=== PATIENT | female | born 1990 | race African-American/Black ===

== ENCOUNTER 2016-09-03 08:21 | Emergency (ER) | payer MEDICAID ==
--- NOTE | 2016-09-03 09:22 | ER Document Report ---
ED General - General Chief Complaint: Pain All Over Stated Complaint: COUGH Mode of Arrival: Ambulatory Information source: Patient Notes: 26-year-old female presents with complaints of body aches fevers intermittently productive cough of one-week duration. Patient was seen at an urgent care and diagnosed as upper respiratory infection started on Augmentin with prednisone. Patient denies any improvement of symptoms. Patient has not gotten the flu vaccine this year TRAVEL OUTSIDE OF THE [place] IN LAST 30 DAYS: No - HPI Onset: Last week Onset/Duration: Persistent Quality of pain: Achy Severity: Mild Pain Level: 1 Associated symptoms: Body/muscle aches, Nonproductive cough, Productive cough, Fever Exacerbated by: Denies Relieved by: Denies Similar symptoms previously: Yes Recently seen / treated by doctor: Yes - Related Data Allergies/Adverse Reactions: No Known Allergies Allergy (Verified 09/03/16 08:30) Past Medical History - Social History Smoking Status: Never Smoker Cigarette use (# per day): No Chew tobacco use (# tins/day): No Smoking Education Provided: No Frequency of alcohol use: None Drug Abuse: None Family History: CAD, Hypertension Patient has suicidal ideation: No Patient has homicidal ideation: No - Past Medical History Cardiac Medical History: Denies: Hx Coronary Artery Disease, Hx Heart Attack, Hx Hypertension Pulmonary Medical History: Denies: Hx Asthma, Hx Bronchitis, Hx COPD, Hx Pneumonia Neurological Medical History: Reports: Hx Migraine. Denies: Hx Cerebrovascular Accident, Hx Seizures Renal/ Medical History: Denies: Hx Peritoneal Dialysis Musculoskeltal Medical History: Denies Hx Arthritis Infectious Medical History: Denies: Hx MRSA Past Surgical History: Reports: Hx Cholecystectomy. Denies: Hx Hysterectomy, Hx Pacemaker - Immunizations Hx Diphtheria, Pertussis, Tetanus Vaccination: Yes Review of Systems - Review of Systems Notes: REVIEW OF SYSTEMS: CONSTITUTIONAL : Admits to fever EENT: Denies eye, ear, throat, or mouth pain or symptoms. Denies nasal or sinus congestion or discharge. Denies throat, tongue, or mouth swelling or difficulty swallowing. CARDIOVASCULAR: Denies chest pain. Denies palpitations or racing or irregular heart beat. Denies ankle edema. RESPIRATORY: Admits cough GASTROINTESTINAL: Denies abdominal pain or distention. Denies nausea, vomiting , or diarrhea. Denies blood in vomitus, stools, or per rectum. Denies black, tarry stools. Denies constipation. GENITOURINARY: Denies difficulty urinating, painful urination, burning, frequency, blood in urine, or discharge. FEMALE GENITOURINARY: Denies vaginal bleeding, heavy or abnormal periods, irregular periods. Denies vaginal discharge or odor. MUSCULOSKELETAL: Admits to body aches SKIN: Denies rash, lesions or sores. HEMATOLOGIC : Denies easy bruising or bleeding. LYMPHATIC: Denies swollen, enlarged glands. NEUROLOGICAL: Denies confusion or altered mental status. Denies passing out or loss of consciousness. Denies dizziness or lightheadedness. Denies headache. Denies weakness or paralysis or loss of use of either side. Denies problems with gait or speech. Denies sensory loss, numbness, or tingling. Denies seizures. PSYCHIATRIC: Denies anxiety or stress. Denies depression, suicidal ideation, or homicidal ideation. ALL OTHER SYSTEMS REVIEWED AND NEGATIVE. Dictation was performed using [employer] voice recognition software PHYSICAL EXAMINATION: GENERAL: Well-appearing, well-nourished and in no acute distress. HEAD: Atraumatic, normocephalic. EYES: Pupils equal round and reactive to light, extraocular movements intact, conjunctiva are normal. ENT: Nares patent, oropharynx clear without exudates. Moist mucous membranes. NECK: Normal range of motion, supple without lymphadenopathy LUNGS: Breath sounds clear to auscultation bilaterally and equal. No wheezes rales or rhonchi. HEART: Regular rate and rhythm without murmurs ABDOMEN: Soft, nontender, nondistended abdomen. No guarding, no rebound. No masses appreciated. Female : deferred Musculoskeletal: Normal range of motion, no pitting or edema. No cyanosis. NEUROLOGICAL: Cranial nerves grossly intact. Normal speech, normal gait. Normal sensory, motor exams PSYCH: Normal mood, normal affect. SKIN: Warm, Dry, normal turgor, no rashes or lesions noted. Physical Exam - Vital signs Vitals: Temp Pulse Resp BP Pulse Ox 98.9 F 92 12 107/72 100 09/03/16 08:28 09/03/16 08:28 09/03/16 08:28 09/03/16 08:28 09/03/16 08:28 Course - Re-evaluation Re-evalutation: 09/03/16 09:28 Physical examination notes no significant abnormality, patient is positive for the flu. Otherwise she looks extremely well is in no distress. Patient will be treated symptomatically given the time of onset. After performing a Medical Screening Examination, I estimate there is LOW risk for ACUTE CORONARY SYNDROME, RESPIRATORY FAILURE, SEPSIS OR MENINGITIS, thus I consider the discharge disposition reasonable. The patient and I have discussed the diagnosis and risks, and we agree with discharging home with close follow- up. We also discussed returning to the Emergency Department immediately if new or worsening symptoms occur. We have discussed the symptoms which are most concerning (e.g., changing or worsening pain, trouble swallowing or breathing, neck stiffness, fever) that necessitate immediate return. - Vital Signs Vital signs: Temp Pulse Resp BP Pulse Ox 98.9 F 92 12 107/72 100 09/03/16 08:28 09/03/16 08:28 09/03/16 08:28 09/03/16 08:28 09/03/16 08:28 Discharge - Discharge Clinical Impression: Influenza A, Body aches Condition: Stable Disposition: HOME, SELF-CARE Instructions: Influenza ([facility]) [id number] Additional Instructions: Follow up with your physician tomorrow for further care or return to the ED IMMEDIATELY if symptoms worsen or new concerns occur Forms: Return to Work
[2016-09-03 09:38] VITALS: BP 110/68
== END 2016-09-03 09:38 | disposition home or self-care (01) ==
LOC: ER 08:21
DX: J09.X2 Influenza due to identified novel influenza A virus with other respiratory manifestations (principal); M79.1 Myalgia; Z90.49 Acquired absence of other specified parts of digestive tract
CPT/HCPCS: 87804; 99283

== ENCOUNTER 2016-12-31 08:13 | Emergency (ER) | payer MEDICAID ==
--- NOTE | 2016-12-31 09:09 | ER Document Report ---
ED Dizziness/Weakness - General Mode of Arrival: Ambulatory Information source: Patient TRAVEL OUTSIDE OF THE [place] IN LAST 30 DAYS: No - HPI Patient complains to provider of: Dizziness Onset: Yesterday Onset/Duration: Intermittent Associated symptoms: Chest pain, Dizzy, Lightheaded, Nausea, Short of breath. denies: Diarrhea, Vomiting Exacerbated by: denies: Change in position, Movement of head Baseline gait: Walks w/o assistance <VELIA GARCIA - Last Filed: 12/31/16 11:52> <TRIP DEMARCO - Last Filed: 01/15/17 09:23> - General Chief Complaint: Dizziness Stated Complaint: DIZZINESS,NAUSEA Time Seen by Provider: 12/31/16 08:25 Notes: Patient is a 26-year-old female presenting to the emergency department concerns of dizziness onset yesterday. Patient also admits to left-sided chest pain, lightheadedness, headache, shortness of breath, nausea, and "just feeling weird. " Patient states that she has been having these problems intermittently over the past several years. Patient states that this has not been constant, it came on yesterday when she had a headache, so she decided to take some Excedrin go to sleep. On waking up, patient reports the headache returning and taking another Excedrin. Patient then went to work, shortly after arriving at work her symptoms came back. She states that it is worse when she takes a deep breath but denies any worsening symptoms when she stands or moves her head quickly. Patient denies any tingling in her extremities, swelling, pain, earache, throat pain, cough, vomiting, diarrhea, or vaginal bleeding. (VELIA GARCIA) - Related Data Allergies/Adverse Reactions: No Known Allergies Allergy (Verified 12/31/16 08:14) Past Medical History - General Information source: Patient - Social History Smoking Status: Never Smoker Family History: Reviewed & Not Pertinent, CAD, Hypertension Patient has suicidal ideation: No Patient has homicidal ideation: No Neurological Medical History: Reports: Hx Migraine Past Surgical History: Reports: Hx Cholecystectomy - Immunizations Hx Diphtheria, Pertussis, Tetanus Vaccination: Yes <VELIA GARCIA - Last Filed: 12/31/16 11:52> Review of Systems - Review of Systems Constitutional: No symptoms reported EENT: No symptoms reported. denies: Ear pain, Throat pain Cardiovascular: See HPI, Chest pain, Dizziness, Lightheaded Respiratory: See HPI, Short of breath. denies: Cough Gastrointestinal: See HPI, Nausea. denies: Diarrhea, Vomiting Genitourinary: No symptoms reported Female Genitourinary: No symptoms reported. denies: Vaginal bleeding Musculoskeletal: No symptoms reported. denies: Leg swelling Skin: No symptoms reported Hematologic/Lymphatic: No symptoms reported Neurological/Psychological: See HPI, Headaches. denies: Tingling -: Yes All other systems reviewed and negative <VELIA GARCIA - Last Filed: 12/31/16 11:52> Physical Exam - Vital signs Interpretation: Normal - General General appearance: Appears well, Alert - HEENT Head: Normocephalic, Atraumatic, Other - No vertigo symptoms Eyes: Normal Pupils: PERRL - Respiratory Respiratory status: No respiratory distress Chest status: Nontender - No reproducible chest wall tenderness Breath sounds: Normal Chest palpation: Normal - Cardiovascular Rhythm: Tachycardia Heart sounds: Normal auscultation Murmur: No - Abdominal Inspection: Normal Tenderness: Nontender - Back Back: Normal, Nontender - Extremities General upper extremity: Normal inspection, Nontender. No: Edema General lower extremity: Normal inspection, Nontender. 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 Stern Time consulted: 11:16 Consulted provider: will come to ER <VELIA GARCIA - Last Filed: 12/31/16 11:52> - Laboratory Result Diagrams: 12/31/16 09:10 12/31/16 09:10 <TRIP DEMARCO - Last Filed: 01/15/17 09:23> - Re-evaluation Re-evalutation: 12/31/16 11:16 Patient presents the emergency room chief complaint dizziness lightheadedness chest pain and shortness of breath. She states she got up this morning she felt a little dizzy she went to work she felt short of breath she states she is to have episodes of shortness of breath on and off for several years but there is no been diagnosis. Even since she has been a teenager. She denies any PE or cardiac abnormality or surgical. She does not have asthma but that they tried her inhalers one time. She feels short of breath. Started having left- sided chest pain dizziness that was not reproducible or vertiginous in nature near syncope but not syncope and left-sided chest pain. Initial heart rate on the monitor was regular and sinus. Patient been having palpitations and EKG was obtained showing a sinus tachycardia 126 bpm. She is not dehydrated she is not anemic and she has a negative CT PE study. At this point rest of her labs are negative I called Dr. Stern motivational speaker for cardiology and is going to come down to the emergency department and evaluate the patient. 12/31/16 11:33 Dr. stern is here to see the patient. He has asked me to give her 12.5 mg p.o. of metoprolol discharged with a prescription and he will see her in the office. He discussed with the patient doing an echocardiogram patient states she does not want to wait to have it done today would rather have it done as an outpatient. [facility] is ordering the outpatient echocardiogram. Patient is stable with this. Do not suspect any cardiac ischemia no dissection or pulmonary embolism. Will discharge given primary care physician and Dr. Stern cardiology for follow-up and discussed reasons for ED return to (TRIP DEMARCO) - Vital Signs Vital signs: Temp Pulse Resp BP Pulse Ox 98.2 F 83 16 102/62 100 12/31/16 08:17 12/31/16 09:20 12/31/16 10:01 12/31/16 10:01 12/31/16 10:01 - Laboratory Laboratory results interpreted by me: 12/31/16 12/31/16 09:10 09:10 Hgb 11.8 L MCHC 31.8 L RDW 14.3 H D-Dimer 0.66 H Discharge <VELIA GARCIA - Last Filed: 12/31/16 11:52> <TRIP DEMARCO - Last Filed: 01/15/17 09:23> - Discharge Clinical Impression: chest pain, sinus tachycardia Condition: Stable Disposition: HOME, SELF-CARE Additional Instructions: Chest Pain of Unclear Cause The exact cause of your chest pain isn't clear. Fortunately, there is no evidence of a dangerous medical condition. Further testing may be required to find the source of the pain. Most often, we find that this pain is coming from the chest wall -- the muscles or rib joints in the chest. But chest pain can come from the lung and lung lining, the esophagus, the heart valves or heart lining, and even the stomach or gallbladder. Rest. Eat lightly until the pain is gone. We may prescribe medicine for pain and inflammation. You should call the physician immediately if the pain radiates to the shoulder, jaw or arms; if you start to run a fever or develop a cough; or if you develop shortness of breath, or other new or alarming symptoms. Sinus Tachycardia The palpitations (racing heart) you have felt are due to "sinus tachycardia." This is a rapid (but NORMAL) rhythm which can be due to fever, pain, anxiety, lack of sleep, over-exertion, or drugs. Cold medications, caffeine, and diet pills are particularly likely to cause tachycardia. The doctor has found no evidence of heart disease. Occasionally, medication is required for uncomfortable palpitations. Usually, however, all that is required is rest, reassurance, and avoiding caffeine, alcohol, nicotine , and unnecessary medicines. Call the doctor if you develop any new or unusual symptoms, or if the rapid heartbeat does not resolve. Prescriptions: Metoprolol Tartrate [Lopressor 25 mg Tablet] 12.5 mg PO DAILY #12 tab Forms: Return to Work Referrals: MAJO LANGLEY DO [Primary Care Provider] - (call Today for follow-up appointment in 2-3 days return for increasing worsening or new sent) GIA STERN MD [ACTIVE STAFF] - Follow up as needed (Dr. stern saw you in the emergency department and has asked that you call his office today to set up a follow-up appointment in the next 3-4 days he discussed with you doing an echocardiogram which he is going to order for you as an outpatient. Return to the emergency department sooner for increasing worsening or new symptoms) Scribe Attestation: 12/31/16 11:38 I personally performed the services described in the documentation reviewed the documentation recorded by my scribe in my presence and it accurately and completely records my words and actions (TRIP DEMARCO) Scribe Documentation - Scribe Written by Ismael:: Ismael Zaman, 12/30/2016 [id number] acting as scribe for :: Cliff <VELIA GARCIA - Last Filed: 12/31/16 11:52>
--- NOTE | 2016-12-31 09:49 | RADIOLOGY REPORT (SQ) ---
EXAM DESCRIPTION: CHEST PA/LAT COMPLETED DATE/TIME: 12/31/2016 9:37 am REASON FOR STUDY: chest pain sob COMPARISON: None. EXAM PARAMETERS: NUMBER OF VIEWS: two views TECHNIQUE: Digital Frontal and Lateral radiographic views of the chest acquired. RADIATION DOSE: NA LIMITATIONS: none FINDINGS: LUNGS AND PLEURA: No opacities, masses or pneumothorax. No pleural effusion. MEDIASTINUM AND HILAR STRUCTURES: No masses or contour abnormalities. HEART AND VASCULAR STRUCTURES: Heart normal size. No evidence for failure. BONES: No acute findings. HARDWARE: EKG leads overlie the chest. OTHER: No other significant finding. IMPRESSION: NO SIGNIFICANT RADIOGRAPHIC FINDING IN THE CHEST. TECHNICAL DOCUMENTATION: JOB ID: [id number] [employer]- All Rights Reserved
[2016-12-31 09:56] LABS: ABSOLUTE EOSINOPHILS # (AUTO) 0.1 10^3/uL (0.0-0.6); ABSOLUTE LYMPHOCYTES (AUTO) 1.4 10^3/uL (0.5-4.7); ABSOLUTE MONOCYTES (AUTO) 0.5 10^3/uL (0.1-1.4); ABSOLUTE NEUT (AUTO) 4.5 10^3/uL (1.7-8.2); BASOPHILS % (AUTO) 0.5 % (0-2); EOSINOPHILS % (AUTO) 0.8 % (0-6); HEMATOCRIT 36.9 % (36.0-47.0); HEMOGLOBIN 11.8 g/dL (12.0-15.5); HGB HCT DIFFERENCE -1.5; LYMPHOCYTES % (AUTO) 21.3 % (13-45); MEAN CORPUSCULAR HEMOGLOBIN 27.6 pg (27.0-33.4); MEAN CORPUSCULAR HGB CONC 31.8 g/dL (32.0-36.0); MEAN CORPUSCULAR VOLUME 87 fl (80-97); MONOCYTES % (AUTO) 7.6 % (3-13); RED BLOOD COUNT 4.26 10^6/uL (3.72-5.28); RED CELL DISTRIBUTION WIDTH 14.3 % (11.5-14.0); SEGMENTED NEUTROPHILS % (AUTO) 69.8 % (42-78); WHITE BLOOD COUNT 6.4 10^3/uL (4.0-10.5)
[2016-12-31 10:10] VITALS: BP 102/62
[2016-12-31 10:15] LABS: ANION GAP 15 (5-19); BLOOD UREA NITROGEN 12 mg/dL (7-20); CALCIUM 10.1 mg/dL (8.4-10.2); CARBON DIOXIDE 24 mmol/L (22-30); CHLORIDE 103 mmol/L (98-107); CREATININE RESULT 0.77 mg/dL (0.52-1.25); GLUCOSE 85 mg/dL (75-110); POTASSIUM 4.3 mmol/L (3.6-5.0)
[2016-12-31 10:29] LABS: URINE BARBITURATES SCREEN NEGATIVE; URINE METHADONE SCREEN NEGATIVE; URINE OPIATES LOW NEGATIVE; URINE PHENCYCLIDINE SCREEN NEGATIVE
[2016-12-31 11:03] LABS: APPEARANCE,URINE CLEAR; BILIRUBIN,URINE NEGATIVE (NEGATIVE); GLUCOSE, URINE NEGATIVE (NEGATIVE); KETONES,URINE NEGATIVE (NEGATIVE); LEUKOCYTE ESTERASE,URINE NEGATIVE (NEGATIVE); NITRITE,URINE NEGATIVE (NEGATIVE); PROTEIN,URINE NEGATIVE (NEGATIVE); URINE SPECIFIC GRAVITY 1.005; UROBILINOGEN,URINE NEGATIVE mg/dL (<2.0)
[2016-12-31 11:04] LABS: RBC,URINE 0-1 /HPF
--- NOTE | 2016-12-31 11:08 | RADIOLOGY REPORT (SQ) ---
EXAM DESCRIPTION: CTA CHEST COMPLETED DATE/TIME: 12/31/2016 10:52 am REASON FOR STUDY: tachycardia sob chest pain COMPARISON: None. TECHNIQUE: CT scan of the chest performed using helical scanning technique with dynamic intravenous contrast injection. Images reviewed with lung, soft tissue and bone windows. Reconstructed coronal and sagittal MPR images reviewed. Additional 3 dimensional post-processing performed to develop Maximal Intensity Projection images (PR P). All images stored on PACS. All CT scanners at this facility use dose modulation, iterative reconstruction, and/or weight based d osing when appropriate to reduce radiation dose to as low as reasonably achievable (ALARA). [facility]: Dose Right [facility]: CareDose [facility]: Dose Right [facility]: Teradose 4D [facility]: Corban Direct CONTRAST TYPE AND DOSE: 62 mL Isovue 370- low osmolar. RENAL FUNCTION: GFR > 60. RADIATION DOSE: 34.16 mGy. LIMITATIONS: None. FINDINGS: LUNGS AND PLEURA: No masses, infiltrates, pneumothorax. No pleural effusions, calcificati ons. AORTA AND GREAT VESSELS: No aneurysm or dissection. HEART: No pericardial effusion. PULMONARY ARTERIES: No emboli visualized in the main pulmonary arteries or the segmental branches. HILAR AND MEDIASTINAL STRUCTURES: No identified masses or abnormal nodes. HARDWARE: None in the chest. UPPER ABDOMEN: No significant findings. Limited exam. THYROID AND OTHER SOFT TISSUES: No masses. No adenopathy. BONES: No acute or significant finding. 3D MIPS: Confirm above findings. OTHER: No other significant finding. IMPRESSION: NORMAL CTA OF THE CHEST. NO PULMONARY EMBOLI. TECHNICAL DOCUMENTATION: JOB ID: [id number] Quality ID # [id number]: Final reports with documentation of one or more dose reduction techniques (e.g., Au tomated exposure control, adjustment of the mA and/or kV according to patient size, use of iterative reconstruction technique) 2010 [employer]- All Rights Reserved
[2016-12-31] MEDS ORDERED: METOPROLOL TARTRATE 25 MG TABLET PO ONE (11:40)
[2016-12-31 13:16] LABS: WBC,URINE NONE SEEN /HPF
--- NOTE | 2016-12-31 13:39 | PDOC CONSULTATION ---
Consultation Consult Date: 12/31/16 Attending physician:: TRIP DEMARCO Consult reason:: Tachycardia History of Present Illness Admission Date/PCP: MAJO LANGLEY DO Patient complains of: Chest pain and shortness of breath History of Present Illness: JOY RICARDO is a 26 year old female presenting to the emergency department concerns of dizziness onset yesterday. Patient also admits to left- sided chest pain, lightheadedness, headache, shortness of breath, nausea, and "just feeling weird." Patient states that she has been having these problems intermittently over the past several years. Patient states that this has not been constant, it came on yesterday when she had a headache, so she decided to take some Excedrin go to sleep. On waking up, patient reports the headache returning and taking another Excedrin. Patient then went to work, shortly after arriving at work her symptoms came back. She states that it is worse when she takes a deep breath but denies any worsening symptoms when she stands or moves her head quickly. Patient denies any tingling in her extremities, swelling, pain, earache, throat pain, cough, vomiting, diarrhea, or vaginal bleeding. Patient denied any prior history of syncopal spell, cardiac problems , congestive heart failure or any other significant medical issues. She does not see any physician on a regular basis. This history was reviewed confirmed and supplemented. Past Medical History Cardiac Medical History: Denies: Coronary Artery Disease, Myocardial Infarction, Hypertension Pulmonary Medical History: Denies: Asthma, Bronchitis, Chronic Obstructive Pulmonary Disease (COPD), Pneumonia Neurological Medical History: Reports: Migraine Denies: Seizures Musculoskeltal Medical History: Denies: Arthritis Hematology: Denies: Anemia Infectious Medical History: Denies: Methicillin-Resistant Staph Aureus Past Surgical History Past Surgical History: Reports: Cholecystectomy Denies: Hysterectomy, Pacemaker Social History Information Source: Patient Smoking Status: Never Smoker - Advance Directive Resuscitation Status: Full Code Family History Family History: CAD, Hypertension Parental Family History Reviewed: Yes Children Family History Reviewed: Yes Sibling(s) Family History Reviewed.: Yes Medication/Allergy Home Medications: Cetirizine HCl [Zyrtec] 10 mg PO DAILY #30 capsule 06/14/16 Prednisone [Deltasone] 20 mg PO BID #6 tablet 06/14/16 Metoprolol Tartrate [Lopressor 25 mg Tablet] 12.5 mg PO DAILY #12 tab 12/31/16 Allergies/Adverse Reactions: No Known Allergies Allergy (Verified 12/31/16 08:14) Review of Systems Review of Systems: Please see history of present illness and past medical history as wall. Constitutional: No fever or chills reported. Head : No recent chronic headaches, recent head injury. Eyes: No recent eye pain, diplopia, redness, discharge, acute visual changes. Ears: No recent chronic ear pain, acute hearing loss, ear discharge. Oral cavity: No recent ulcerations, bleeding, oral cavity discomfort. Neck: No recent acute neck pain reported. Hematologic: No recent easy bruising or bleeding or hematologic malignancy reported. Lymphatic: No recent lymphatic malignancy, chronic lymphadenopathy reported yet Cardiovascular system review: See history of present illness. Respiratory system review: No recent chronic cough, hemoptysis, blood clots in the lungs reported. Mild Shortness of breath on exertion Gastrointestinal system review: Negative for any recent acute or chronic abdominal pain, hematemesis, melena, recent change in bowel habits. Genitourinary system review: No recent acute or chronic hematuria, flank pain, UTI etc. reported. Skin system review: Negative for any recent abnormal bruising, no rash, no pruritus reported. Neurologic: No prior history of strokes, mini strokes, seizure disorder. Intermittent dizziness reported. Psychologic: No history of major psychosis or major depression reported. Musculoskeletal: Minor aches and pains reported. No acute joint swelling reported. Endocrine: No recent polyuria, polydipsia, recent heat or cold intolerance. Physical Exam Vital Signs: Temp Pulse Resp BP Pulse Ox 98.2 F 83 16 102/62 100 12/31/16 08:17 12/31/16 09:20 12/31/16 10:01 12/31/16 10:01 12/31/16 10:01 Intake & Output 12/30/16 12/31/16 01/01/17 06:59 06:59 06:59 Weight 54.3 kg Exam: GENERAL: well-nourished and in no acute distress. Alert and oriented x3 HEAD: Atraumatic, normocephalic. EYES: Pupils equal round and reactive to light, extraocular movements intact, sclera anicteric, conjunctiva are normal. ENT: TMs normal, nares patent, oropharynx clear without exudates. Moist mucous membranes. No oral ulcerations or bleeding gums noted NECK: supple without lymphadenopathy. Trachea is central. No cervical or axillary lymphadenopathy noted. Carotids are 2+, JVD WNL LUNGS: Respiration seems nonlabored, no significant accessory muscle action noted. Breath sounds clear to auscultation bilaterally and equal noted. No wheezes rales or rhonchi noted. No significant dullness noted on percussion. CHEST: Palpation of the chest wall shows no significant chest wall tenderness. No other significant abnormalities noted. HEART: [place] [employer], No PSH, 1/6 JANES aortic area, 1/6 pope systolic murmur mitral area, no rubs, no gallops. ABDOMEN: Soft, no significant tenderness appreciated, normoactive bowel sounds. No guarding, no rebound. No rigidity noted . No masses appreciated. EXTREMITIES: Pedal pulses are 1-2+, no calf tenderness noted. No clubbing or cyanosis.trace to 1+ pedal edema noted NEUROLOGICAL: Focused neurological exam showed no significant neurologic deficit. Normal speech, no focal weakness appreciated. PSYCH: Normal mood, normal affect. Judgment and insight within normal limits. SKIN: No significant ecchymosis, rash, ulcerations or signs of pruritus noted. MUSCULOSKELETAL EXAM: No significant joint swelling noted. Results Laboratory Results: 12/31/16 09:10 12/31/16 09:10 12/31/16 12/31/16 12/31/16 09:10 09:10 09:10 WBC 6.4 RBC 4.26 Hgb 11.8 L Hct 36.9 MCV 87 MCH 27.6 MCHC 31.8 L RDW 14.3 H Plt Count 211 Seg Neutrophils % 69.8 Lymphocytes % 21.3 Monocytes % 7.6 Eosinophils % 0.8 Basophils % 0.5 Absolute Neutrophils 4.5 Absolute Lymphocytes 1.4 Absolute Monocytes 0.5 Absolute Eosinophils 0.1 Absolute Basophils 0.0 Sodium 142.0 Potassium 4.3 Chloride 103 Carbon Dioxide 24 Anion Gap 15 BUN 12 Creatinine 0.77 Est GFR ( Amer) > 60 Est GFR (Non-Af Amer) > 60 Glucose 85 Calcium 10.1 Serum HCG, Qual NEGATIVE Urine Color Urine Appearance Urine pH Ur Specific [place] Urine Protein Urine Glucose (UA) Urine Ketones Urine Blood Urine Nitrite Ur Leukocyte Esterase 12/31/16 09:10 WBC RBC Hgb Hct MCV MCH MCHC RDW Plt Count Seg Neutrophils % Lymphocytes % Monocytes % Eosinophils % Basophils % Absolute Neutrophils Absolute Lymphocytes Absolute Monocytes Absolute Eosinophils Absolute Basophils Sodium Potassium Chloride Carbon Dioxide Anion Gap BUN Creatinine Est GFR ( Amer) Est GFR (Non-Af Amer) Glucose Calcium Serum HCG, Qual Urine Color COLORLESS Urine Appearance CLEAR Urine pH 7.0 Ur Specific [place] 1.005 Urine Protein NEGATIVE Urine Glucose (UA) NEGATIVE Urine Ketones NEGATIVE Urine Blood NEGATIVE Urine Nitrite NEGATIVE Ur Leukocyte Esterase NEGATIVE EKG Comments: Sinus rhythm, no acute ST-T wave changes are noted Impressions: Chest X-Ray 12/31/16 08:43 IMPRESSION: NO SIGNIFICANT RADIOGRAPHIC FINDING IN THE CHEST. Chest/Abdomen CTA 12/31/16 10:30 IMPRESSION: NORMAL CTA OF THE CHEST. NO PULMONARY EMBOLI. Assessment & Plan - Diagnosis (1) Chest pain Qualifiers: Chest pain type: chest pain on breathing Qualified Code(s): R07.1 - Chest pain on breathing Is this a current diagnosis for this admission?: Yes (2) Shortness of breath Is this a current diagnosis for this admission?: Yes (3) Dizziness Is this a current diagnosis for this admission?: Yes (4) Tachycardia Is this a current diagnosis for this admission?: Yes (5) Panic attack Is this a current diagnosis for this admission?: Yes - Notes Notes: Patient symptom complex most likely consistent with anxiety panic disorder. Have discussed this with the patient. CTA was negative for any pulmonary embolism and also did not show any coronary calcification. Have also discussed that she might benefit from a 2D echo and a stress test just to be sure there is no other structural heart disease. Patient was prescribed Toprol-XL 12.5 mg by the ER physician on my recommendation. Patient was also advised to undergo a 2D echo but she did not want to wait but will get this scheduled at my office. Patient twelve-lead EKG shows questionable LVH. Patient to report any further problems. Discussed with the ER physician who is going to discharge the patient with instructions to follow-up with me in the office. Have recommended a event monitor/Holter monitor with the patient. - Time Time Spent: 30 to 50 Minutes Medications reviewed and adjusted accordingly: Yes
[2017-01-01] MEDS ORDERED: METOPROLOL SUCCINATE 25 MG TAB.SR.24H PO SCH (10:00)
--- NOTE | 2017-01-01 11:03 | EKG REPORT ---
SEVERITY:- NORMAL ECG - SINUS RHYTHM : Confirmed by: Nadia Esposito MD 01-Jan-2017 11:02:22
--- NOTE | 2017-01-01 11:03 | EKG REPORT ---
SEVERITY:- OTHERWISE NORMAL ECG - SINUS TACHYCARDIA : Confirmed by: Nadia Esposito MD 01-Jan-2017 11:02:17
== END 2016-12-31 12:06 | disposition home or self-care (01) ==
LOC: ER 08:13
DX: R07.9 Chest pain, unspecified (principal); R00.0 Tachycardia, unspecified; R42 Dizziness and giddiness; R11.0 Nausea; R06.02 Shortness of breath; R51 Headache
CPT/HCPCS: 36415; 71020; 71275; 80048; 80307; 81001; 84703; 85025; 85379; 93005; 93010; 99285

== ENCOUNTER 2017-06-14 20:07 | Emergency (ER) | payer OTHER ==
[2017-06-14] MEDS ORDERED: METOCLOPRAMIDE HCL ORAL SOLN 10 MG/10 ML UDCUP PO ONE (21:25)
[2017-06-14] MEDS ORDERED: MAG HYDROX/AL HYDROX/SIMETH SUSP 30 ML UDCUP PO ONE (21:25)
[2017-06-14] MEDS ORDERED: LIDOCAINE 2% VISCOUS SOLN 20 ML UDCUP PO ONE (21:25)
[2017-06-14] MEDS ORDERED: FAMOTIDINE 20 MG TABLET PO ONE (21:25)
--- NOTE | 2017-06-14 21:26 | ER Document Report ---
ED General - General Chief Complaint: Upper abdominal pain, nausea, racing heart Stated Complaint: SHORTNESS OF BREATH,ABDOMINAL PAIN Time Seen by Provider: 06/14/17 21:04 Notes: Patient is a 26-year-old female with past medical history of anxiety who presents with several weeks of intermittent chest burning. She reports that this is an intermittent, burning, moderate discomfort diffusely in her chest. She states is worsened when she lies flat and often improves when she sits up. She has a history of gastroesophageal reflux but has not been taking any medications to treat this until last 2 days but states that this has not significantly improved her symptoms. She has not seen a primary care doctor regarding today's concerns. She denies any history of DVT or pulmonary embolus. She does not use estrogen any form. She denies any shortness of breath or pleuritic pain. No vomiting. She has no cardiac history. TRAVEL OUTSIDE OF THE [place] IN LAST 30 DAYS: No - Related Data Allergies/Adverse Reactions: No Known Allergies Allergy (Verified 12/31/16 08:14) Past Medical History - General Information source: Patient - Social History Smoking Status: Never Smoker Frequency of alcohol use: None Drug Abuse: None Lives with: Spouse/Significant other Family History: CAD, Hypertension Patient has suicidal ideation: No Patient has homicidal ideation: No - Past Medical History Cardiac Medical History: Denies: Hx Coronary Artery Disease, Hx Heart Attack, Hx Hypertension Pulmonary Medical History: Denies: Hx Asthma, Hx Bronchitis, Hx COPD, Hx Pneumonia Neurological Medical History: Reports: Hx Migraine. Denies: Hx Cerebrovascular Accident, Hx Seizures Renal/ Medical History: Denies: Hx Peritoneal Dialysis Musculoskeltal Medical History: Denies Hx Arthritis Infectious Medical History: Denies: Hx MRSA Past Surgical History: Reports: Hx Cholecystectomy. Denies: Hx Hysterectomy, Hx Pacemaker - Immunizations Hx Diphtheria, Pertussis, Tetanus Vaccination: Yes Review of Systems - Review of Systems Notes: Constitutional: Negative for fever. HENT: Negative for sore throat. Eyes: Negative for visual changes. Cardiovascular: Positive for chest pain. Respiratory: Negative for shortness of breath. Gastrointestinal: Negative for abdominal pain, vomiting or diarrhea. Genitourinary: Negative for dysuria. Musculoskeletal: Negative for back pain. Skin: Negative for rash. Neurological: Negative for headaches, weakness or numbness. 10 point ROS negative except as marked above and in HPI. Physical Exam - Vital signs Vitals: Temp Pulse Resp BP Pulse Ox 98.5 F 102 H 16 123/75 97 06/14/17 20:15 06/14/17 20:15 06/14/17 20:15 06/14/17 20:15 06/14/17 20:15 Interpretation: Normal Notes: PHYSICAL EXAMINATION: GENERAL: Well-appearing, well-nourished and in no acute distress. HEAD: Atraumatic, normocephalic. EYES: Pupils equal round and reactive to light, extraocular movements intact, sclera anicteric, conjunctiva are normal. ENT: nares patent, oropharynx clear without exudates. Moist mucous membranes. NECK: Normal range of motion, supple without lymphadenopathy LUNGS: Breath sounds clear to auscultation bilaterally and equal. No wheezes rales or rhonchi. HEART: Regular rate and rhythm without murmurs ABDOMEN: Soft, nontender, normoactive bowel sounds. No guarding, no rebound. No masses appreciated. EXTREMITIES: Normal range of motion, no pitting or edema. No cyanosis. NEUROLOGICAL: No focal neurological deficits. Moves all extremities spontaneously and on command. PSYCH: Normal mood, normal affect. SKIN: Warm, Dry, normal turgor, no rashes or lesions noted. Course - Re-evaluation Re-evalutation: 06/14/17 21:25 Patient presents with epigastric abdominal pain with associated reflux symptoms most consistent with likely gastritis. Patient has no focal abdominal tenderness on examination. Right upper quadrant ultrasound does not demonstrate any evidence of acute cholecystitis or cholelithiasis. Lipase is normal. No LFT changes. Based on history and exam, I do not suspect ACS, pulmonary embolus, SBO, mesenteric ischemia, acute pancreatitis, biliary pathology, or an abdominal aortic dissection. Patient did initially have some complaints of possible shortness of breath although she reports it more as a burning in her chest particular when she lays flat. Although her initial heart rate in triage was listed as 102, at time of my assessment and at time of EKG her heart rate is normal. PERC criteria negative. I do not believe proceeding further with d-dimer testing would be appropriate as I do not clinically suspect a pulmonary embolus and she is actually worked up for that possibility in the past with this presentation and found to be negative. Patient has had improvement of symptoms here with a GI cocktail. At this time will discharge with return precautions and follow-up recommendations. Verbal discharge instructions given a the bedside and opportunity for questions given. Medication warnings reviewed. Patient is in agreement with this plan and has verbalized understanding of return precautions and the need for primary care follow-up in the next 24-72 hours. - Vital Signs Vital signs: Temp Pulse Resp BP Pulse Ox 98.3 F 87 16 109/62 98 06/14/17 22:50 06/14/17 22:50 06/14/17 22:50 06/14/17 22:58 06/14/17 22:50 - Laboratory Result Diagrams: 06/14/17 21:10 - Diagnostic Test Radiology reviewed: Image reviewed, Reports reviewed Radiology results interpreted by me: 06/14/17 22:38 Chest x-ray: No acute infiltrate or pneumothorax - EKG Interpretation by Me Additional EKG results interpreted by me: 06/14/17 22:38 Normal sinus rhythm. Rate 84. No ST elevations or depressions. QTC is 421. Discharge - Discharge Clinical Impression: Epigastric abdominal pain, Burning chest pain Condition: Good Disposition: HOME, SELF-CARE Additional Instructions: Your symptoms appear to be most consistent with stomach or upper intestinal irritation. Please begin taking famotidine 40 mg in the morning and 40 mg at night. This medicine can be purchased directly [id number]. You may also take medicine such as Pepto-Bismol or Tums to assist with your pain. Please return to emergency department immediately if you have worsening of your pain, shortness of breath, vomiting, become unable to exert yourself due to pain or difficulty breathing, you pass out, or have any pain that radiates into your arms, jaw, or back. Please also return if you have any additional symptoms that are concerning to you.
[2017-06-14 21:51] LABS: ALANINE AMINOTRANSFERASE 27 U/L (9-52); ALBUMIN 4.4 g/dL (3.5-5.0); ALKALINE PHOSPHATASE 47 U/L (38-126); ANION GAP 11 (5-19); ASPARTATE AMINO TRANSFERASE 26 U/L (14-36); BILIRUBIN,DIRECT 0.3 mg/dL (0.0-0.4); BILIRUBIN,TOTAL 0.5 mg/dL (0.2-1.3); BLOOD UREA NITROGEN 13 mg/dL (7-20); CALCIUM 9.6 mg/dL (8.4-10.2); CARBON DIOXIDE 26 mmol/L (22-30); CHLORIDE 106 mmol/L (98-107); CREATININE RESULT 0.77 mg/dL (0.52-1.25); GLUCOSE 95 mg/dL (75-110); LIPASE 147.2 U/L (23-300); POTASSIUM 4.4 mmol/L (3.6-5.0); SODIUM 142.8 mmol/L (137-145); TOTAL PROTEIN 7.9 g/dL (6.3-8.2)
--- NOTE | 2017-06-14 22:29 | RADIOLOGY REPORT (SQ) ---
EXAM DESCRIPTION: CHEST SINGLE VIEW COMPLETED DATE/TIME: 06/14/2017 9:31 pm REASON FOR STUDY: sob COMPARISON: None. EXAM PARAMETERS: NUMBER OF VIEWS: One view. TECHNIQUE: Single frontal radiographic view of the chest acquired. RADIATION DOSE: NA LIMITATIONS: None. FINDINGS: LUNGS AND PLEURA: No opacities, masses or pneumothorax. No pleural effusion. MEDIASTINUM AND HILAR STRUCTURES: No masses. Contour normal. HEART AND VASCULAR STRUCTURES: Heart normal in size. Normal vasculature. BONES: No acute findings. HARDWARE: None in the chest. OTHER: No other significant finding. IMPRESSION: NO ACUTE RADIOGRAPHIC FINDING IN THE CHEST. TECHNICAL DOCUMENTATION: JOB ID: [id number] [employer]- All Rights Reserved
[2017-06-14 22:59] VITALS: BP 109/62
--- NOTE | 2017-06-14 23:21 | EKG REPORT ---
SEVERITY:- NORMAL ECG - SINUS RHYTHM : Confirmed by: Nathalie Stern 14-Jun-2017 23:20:34
== END 2017-06-14 22:59 | disposition home or self-care (01) ==
LOC: ER 20:07
DX: R10.13 Epigastric pain (principal); R07.9 Chest pain, unspecified; R11.0 Nausea; R00.2 Palpitations; R06.02 Shortness of breath; F41.9 Anxiety disorder, unspecified
CPT/HCPCS: 93005; 99284; 36415; 84702; 83690; 80053; 71010; 93010; J3490

== ENCOUNTER 2017-09-15 19:32 | Emergency (ER) | payer OTHER ==
--- NOTE | 2017-09-15 23:32 | ER Document Report ---
ED General - General Mode of Arrival: Ambulatory Information source: Patient TRAVEL OUTSIDE OF THE [place] IN LAST 30 DAYS: No - General Chief Complaint: Headache, sore throat, nausea, neck stiffness Stated Complaint: HEADACHE, SORE THROAT, NAUSEA Time Seen by Provider: 09/15/17 22:25 Notes: Patient is a 27-year-old female that presents to the emergency department today with multiple complaints including a migraine headache, a "scratchy and sore throat", abdominal pain, nausea, and a dry cough. 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 Patient states her migraine began first, starting 3 days ago. Her throat irritation began yesterday and this morning she woke up with the abdominal pain, cough, and nausea. Patient mentions that she has chronic shortness of breath however she has not had any increase in her shortness of breath since her symptoms began. Patient denies any vomiting or fevers. (PEPITO BOURNE) - Related Data Allergies/Adverse Reactions: No Known Allergies Allergy (Verified 12/31/16 08:14) Past Medical History - General Information source: Patient - Social History Smoking Status: Never Smoker Cigarette use (# per day): No Frequency of alcohol use: None Drug Abuse: None Lives with: Family Family History: Reviewed & Not Pertinent, CAD, Hypertension Patient has suicidal ideation: No Patient has homicidal ideation: No Neurological Medical History: Reports: Hx Migraine Past Surgical History: Reports: Hx Cholecystectomy - Immunizations Hx Diphtheria, Pertussis, Tetanus Vaccination: Yes Review of Systems - Review of Systems Constitutional: denies: Fever EENT: See HPI, Throat pain Cardiovascular: No symptoms reported Respiratory: See HPI, Cough, Short of breath - pt states she has chronic shortness of breath but she has not had any increase with her illness Gastrointestinal: See HPI, Abdominal pain, Nausea. denies: Vomiting Genitourinary: No symptoms reported Female Genitourinary: No symptoms reported Musculoskeletal: No symptoms reported Skin: No symptoms reported Hematologic/Lymphatic: No symptoms reported Neurological/Psychological: See HPI, Headaches -: Yes All other systems reviewed and negative Physical Exam - Vital signs Vitals: Temp Pulse Resp BP Pulse Ox 98.1 F 87 16 118/63 100 09/15/17 20:12 09/15/17 20:12 09/15/17 20:12 09/15/17 20:12 09/15/17 20:12 - Notes Notes: Physical Exam: General: Alert, appears well. HEENT: Normocephalic. Atraumatic. PERRL. Extraocular movements intact. Oropharynx clear. No posterior pharynx erythema or exudate. Neck: Supple. Non-tender. Respiratory: No respiratory distress. Clear and equal breath sounds bilaterally. Cardiovascular: Regular rate and rhythm. Abdominal: Normal Inspection. Non-tender. No distension. Normal Bowel Sounds. Back: Non-tender. No deformity or step off. Extremities: Moves all four extremities. Upper extremities: Normal inspection. Normal ROM. Lower extremities: Normal inspection. No edema. Normal ROM. Neurological: Normal cognition. AAOx4. Normal speech. Psychological: Normal affect. Normal Mood. Skin: Warm. Dry. Normal color. (PEPITO BOURNE) Course - Re-evaluation Re-evalutation: 09/16/17 00:47 Patient reports complete resolution of headache. Wishes to be discharged. 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 Patient was given Compazine and Zofran with complete resolution of headache. Patient appears well. No evidence for bacterial infection. Likely viral syndrome. Patient is instructed to follow-up with her doctor. She will be given a work note. Return if any worsening or concerning symptoms. AVSS. Stable for discharge. (GOOD BULL) - Vital Signs Vital signs: Temp Pulse Resp BP Pulse Ox 98.6 F 74 16 132/66 H 99 09/16/17 01:15 09/16/17 01:15 09/16/17 01:15 09/16/17 01:15 09/16/17 01:15 Discharge - Discharge Clinical Impression: Headache Qualifiers: Headache type: unspecified Headache chronicity pattern: acute headache Intractability: not intractable Qualified Code(s): R51 - Headache Upper respiratory infection Qualifiers: URI type: unspecified URI Qualified Code(s): J06.9 - Acute upper respiratory infection, unspecified Condition: Stable Disposition: HOME, SELF-CARE Instructions: Headache ([facility]), Viral Syndrome ([facility]) Prescriptions: Ondansetron [Zofran Odt 4 mg Tablet] 1 tab PO Q6HP PRN #15 tab.rapdis PRN Reason: For Nausea/Vomiting Prochlorperazine Maleate [Compazine 10 mg Tablet] 10 mg PO BIDP PRN #20 tablet PRN Reason: Forms: Return to Work Referrals: GWEN DELGADO MD [Primary Care Provider] - Follow up as needed Scribe Attestation: 09/16/17 05:28 I personally performed the services described in the documentation, reviewed and edited the documentation which was dictated to the scribe in my presence, and it accurately records my words and actions. (GOOD BULL) Scribe Documentation - Scribe Written by [place]:: Ismael Lewis, 09/16/2017 0012 acting as scribe for :: Renee
[2017-09-15] MEDS ORDERED: ONDANSETRON 4 MG TAB.RAPDIS PO ONE (23:33)
[2017-09-15] MEDS ORDERED: PROCHLORPERAZINE MALEATE 5 MG TABLET PO ONE (23:33)
[2017-09-16] MEDS ORDERED: PROCHLORPERAZINE MALEATE 5 MG TABLET ONE (00:22)
[2017-09-16 01:18] VITALS: BP 132/66
== END 2017-09-16 01:15 | disposition home or self-care (01) ==
LOC: ER 19:32
DX: G43.909 Migraine, unspecified, not intractable, without status migrainosus (principal); J06.9 Acute upper respiratory infection, unspecified; J02.9 Acute pharyngitis, unspecified; R11.0 Nausea; R10.9 Unspecified abdominal pain; R05 Cough; R06.02 Shortness of breath; Z90.49 Acquired absence of other specified parts of digestive tract
CPT/HCPCS: 99284; S0119; S0183

== ENCOUNTER 2017-09-26 13:42 | Emergency (ER) | payer MEDICAID, OTHER ==
--- NOTE | 2017-09-26 14:24 | ER Document Report ---
ED Medical Screen (RME) - General Chief Complaint: Irregular Pulse Stated Complaint: RAPID HEART RATE Time Seen by Provider: 09/26/17 14:22 Notes: Patient says she is having a rapid heartbeat intermittently since . It is associated with feeling short of breath. She says this is been going on monthly for the past many months. She was seen here recently and referred to a local general laborer who did a Holter monitor, echocardiogram, and advised her that he thought she might be having anxiety. He prescribed her Zoloft, but she did not like the way it made her feel and so he prescribed another medication which she got filled. TRAVEL OUTSIDE OF THE [place] IN LAST 30 DAYS: No - Related Data Allergies/Adverse Reactions: No Known Allergies Allergy (Verified 12/31/16 08:14) Past Medical History - Social History Frequency of alcohol use: Occasional Drug Abuse: None - Past Medical History Cardiac Medical History: Denies: Hx Coronary Artery Disease, Hx Heart Attack, Hx Hypertension Pulmonary Medical History: Denies: Hx Asthma, Hx Bronchitis, Hx COPD, Hx Pneumonia Neurological Medical History: Reports: Hx Migraine. Denies: Hx Cerebrovascular Accident, Hx Seizures Renal/ Medical History: Denies: Hx Peritoneal Dialysis Musculoskeltal Medical History: Denies Hx Arthritis Infectious Medical History: Denies: Hx MRSA Past Surgical History: Reports: Hx Cholecystectomy. Denies: Hx Hysterectomy, Hx Pacemaker - Immunizations Hx Diphtheria, Pertussis, Tetanus Vaccination: Yes Physical Exam - Vital signs Vitals: Temp Pulse Resp BP Pulse Ox 98.3 F 86 20 111/59 L 100 09/26/17 13:53 09/26/17 13:53 09/26/17 13:53 09/26/17 13:53 09/26/17 13:53 Course - Vital Signs Vital signs: Temp Pulse Resp BP Pulse Ox 98.3 F 86 20 111/59 L 100 09/26/17 13:53 09/26/17 13:53 09/26/17 13:53 09/26/17 13:53 09/26/17 13:53
[2017-09-26 14:55] LABS: APPEARANCE,URINE CLEAR; BILIRUBIN,URINE NEGATIVE (NEGATIVE); COLOR,URINE YELLOW; GLUCOSE, URINE NEGATIVE (NEGATIVE); KETONES,URINE NEGATIVE (NEGATIVE); LEUKOCYTE ESTERASE,URINE NEGATIVE (NEGATIVE); NITRITE,URINE NEGATIVE (NEGATIVE); PROTEIN,URINE NEGATIVE (NEGATIVE); URINE SPECIFIC GRAVITY 1.019; UROBILINOGEN,URINE NEGATIVE mg/dL (<2.0)
[2017-09-26 14:58] LABS: ABSOLUTE LYMPHOCYTES (AUTO) 1.4 10^3/uL (0.5-4.7); ABSOLUTE MONOCYTES (AUTO) 0.5 10^3/uL (0.1-1.4); ABSOLUTE NEUT (AUTO) 3.6 10^3/uL (1.7-8.2); BASOPHILS % (AUTO) 0.4 % (0-2); EOSINOPHILS % (AUTO) 0.7 % (0-6); HEMATOCRIT 33.7 % (36.0-47.0); HEMOGLOBIN 10.9 g/dL (12.0-15.5); LYMPHOCYTES % (AUTO) 24.9 % (13-45); MEAN CORPUSCULAR HEMOGLOBIN 26.8 pg (27.0-33.4); MEAN CORPUSCULAR HGB CONC 32.3 g/dL (32.0-36.0); MEAN CORPUSCULAR VOLUME 83 fl (80-97); MONOCYTES % (AUTO) 9.8 % (3-13); PLATELET COUNT 233 10^3/uL (150-450); RED BLOOD COUNT 4.06 10^6/uL (3.72-5.28); RED CELL DISTRIBUTION WIDTH 15.7 % (11.5-14.0); SEGMENTED NEUTROPHILS % (AUTO) 64.2 % (42-78); TOTAL CELLS COUNTED % (AUTO) 100 %; WHITE BLOOD COUNT 5.5 10^3/uL (4.0-10.5)
[2017-09-26 15:10] LABS: URINE AMPHETAMINES SCREEN NEGATIVE; URINE BARBITURATES SCREEN NEGATIVE; URINE BENZODIAZEPINES SCREEN NEGATIVE; URINE COCAINE SCREEN NEGATIVE; URINE MARIJUANA (THC) SCREEN NEGATIVE; URINE METHADONE SCREEN NEGATIVE; URINE PHENCYCLIDINE SCREEN NEGATIVE
[2017-09-26 15:13] LABS: ALANINE AMINOTRANSFERASE 28 U/L (9-52); ALBUMIN 4.2 g/dL (3.5-5.0); ALKALINE PHOSPHATASE 38 U/L (38-126); ANION GAP 11 (5-19); ASPARTATE AMINO TRANSFERASE 25 U/L (14-36); BILIRUBIN,DIRECT 0.3 mg/dL (0.0-0.4); BILIRUBIN,TOTAL 0.3 mg/dL (0.2-1.3); BLOOD UREA NITROGEN 12 mg/dL (7-20); CALCIUM 9.6 mg/dL (8.4-10.2); CARBON DIOXIDE 27 mmol/L (22-30); CHLORIDE 106 mmol/L (98-107); GLUCOSE 93 mg/dL (75-110); POTASSIUM 4.4 mmol/L (3.6-5.0); SODIUM 143.6 mmol/L (137-145); TOTAL PROTEIN 7.6 g/dL (6.3-8.2)
--- NOTE | 2017-09-26 15:15 | RADIOLOGY REPORT (SQ) ---
EXAM DESCRIPTION: CHEST PA/LAT COMPLETED DATE/TIME: 09/26/2017 3:07 pm REASON FOR STUDY: Palpitations and rapid heartbeat COMPARISON: 06/14/2017. EXAM PARAMETERS: NUMBER OF VIEWS: two views TECHNIQUE: Digital Frontal and Lateral radiographic views of the chest acquired. RADIATION DOSE: NA LIMITATIONS: none FINDINGS: LUNGS AND PLEURA: No opacities, masses or pneumothorax. No pleural effusion. MEDIASTINUM AND HILAR STRUCTURES: No masses or contour abnormalities. HEART AND VASCULAR STRUCTURES: Heart normal size. No evidence for failure. BONES: No acute findings. HARDWARE: Clips in the upper abdomen. OTHER: No other significant finding. IMPRESSION: NO SIGNIFICANT RADIOGRAPHIC FINDING IN THE CHEST. TECHNICAL DOCUMENTATION: JOB ID: [id number] [email or web address]- All Rights Reserved Reading location - IP/workstation name: [email or web address]
--- NOTE | 2017-09-26 15:15 | ER Document Report ---
ED General - General Chief Complaint: Irregular Pulse Stated Complaint: RAPID HEART RATE Time Seen by Provider: 09/26/17 14:22 Mode of Arrival: Ambulatory Information source: Patient TRAVEL OUTSIDE OF THE [place] IN LAST 30 DAYS: No - HPI Patient complains to provider of: Patient states she feels a little bit "out of it". Onset: Yesterday Onset/Duration: Constant Quality of pain: Other - had pain left neck-resolved Notes: 27-year-old -Chinese female states that she began with a rapid heartbeat intermittently that began in December 2017. Around April 2018 she had a negative 24-hour Holter monitor as well as a negative stress test and echo.She states that today she just did not feel like herself. She states she had some neck discomfort that was worse when she rotated her head to the left. She states she also felt not quite lightheaded but just a little bit groggy.She denies recent rapid heart rate but states she has had in the past.She denies recent rapid heart rate but states she has had in the past. 1001 with a 3-year- old son at home. She states that she used to see a neurologist for Migraines. She states about a week and a half ago she did have a migraine for 2 days she was seen here and it resolved with Phenergan and Zofran. Patient states she does not have health insurance she is a plumber's assistant at a business. She states she missed the sign update for insurance and so cannot get it until next June. - Related Data Allergies/Adverse Reactions: No Known Allergies Allergy (Verified 12/31/16 08:14) Past Medical History - General Information source: Patient - Social History Smoking Status: Never Smoker Frequency of alcohol use: Occasional Drug Abuse: None Lives with: Family Family History: CAD, Hypertension, Other - Patient states her dad does not have any medical problems. Her mom at age 42. She states she had lung cancer, scleroderma, interstitial lung disease and for the last year of her life is on hemodialysis.Patient has 2 siblings they are healthy Patient has suicidal ideation: No Patient has homicidal ideation: No - Past Medical History Cardiac Medical History: Reports: Other - rapid heart beat Denies: Hx Coronary Artery Disease, Hx Heart Attack, Hx Hypertension Pulmonary Medical History: Reports: None Denies: Hx Asthma, Hx Bronchitis, Hx COPD, Hx Pneumonia EENT Medical History: Reports: None Neurological Medical History: Reports: Hx Migraine. Denies: Hx Cerebrovascular Accident, Hx Seizures Endocrine Medical History: Reports: None Renal/ Medical History: Reports: None. Denies: Hx Peritoneal Dialysis Malignancy Medical History: Reports: None GI Medical History: Reports: None Musculoskeltal Medical History: Reports None, Denies Hx Arthritis Skin Medical History: Reports None Psychiatric Medical History: Reports: None Traumatic Medical History: Reports: None Infectious Medical History: Reports: None. Denies: Hx MRSA Past Surgical History: Reports: Hx Cholecystectomy. Denies: Hx Hysterectomy, Hx Pacemaker - Immunizations Hx Diphtheria, Pertussis, Tetanus Vaccination: Yes History of Influenza Vaccine for 04/2017 - 09/2017 Season: No Review of Systems - Review of Systems Constitutional: No symptoms reported EENT: No symptoms reported Cardiovascular: See HPI, Palpitations, Heart racing, Lightheaded Respiratory: No symptoms reported Gastrointestinal: No symptoms reported Genitourinary: No symptoms reported Female Genitourinary: No symptoms reported Musculoskeletal: No symptoms reported Skin: No symptoms reported Hematologic/Lymphatic: No symptoms reported Neurological/Psychological: Headaches Physical Exam - Vital signs Vitals: Temp Pulse Resp BP Pulse Ox 98.3 F 86 20 111/59 L 100 09/26/17 13:53 09/26/17 13:53 09/26/17 13:53 09/26/17 13:53 09/26/17 13:53 - Notes Notes: PHYSICAL EXAMINATION: GENERAL: Well-appearing, well-nourished and in no acute distress. HEAD: Atraumatic, normocephalic. EYES: Pupils equal round and reactive to light, extraocular movements intact, conjunctiva are normal. ENT: Nares patent, oropharynx clear without exudates. Moist mucous membranes. NECK: Normal range of motion, supple without lymphadenopathy. No thyroid nodules or enlargement appreciated LUNGS: Breath sounds clear to auscultation bilaterally and equal. No wheezes rales or rhonchi. HEART: Regular rate and rhythm without murmurs ABDOMEN: Soft, nontender, nondistended abdomen. No guarding, no rebound. No masses appreciated. Female : deferred Musculoskeletal: Normal range of motion, no pitting or edema. No cyanosis. NEUROLOGICAL: Cranial nerves grossly intact. Normal speech, normal gait. Normal sensory, motor exams PSYCH: Normal mood, normal affect. SKIN: Warm, Dry, normal turgor, no rashes or lesions noted. Course - Re-evaluation Re-evalutation: 09/26/17 15:55 Labs- All tests 24 hr 09/26/17 09/26/17 09/26/17 14:40 14:40 14:40 WBC 5.5 RBC 4.06 Hgb 10.9 L Hct 33.7 L MCV 83 MCH 26.8 L MCHC 32.3 RDW 15.7 H Plt Count 233 Seg Neutrophils % 64.2 Lymphocytes % 24.9 Monocytes % 9.8 Eosinophils % 0.7 Basophils % 0.4 Absolute Neutrophils 3.6 Absolute Lymphocytes 1.4 Absolute Monocytes 0.5 Absolute Eosinophils 0.0 Absolute Basophils 0.0 Sodium 143.6 Potassium 4.4 Chloride 106 Carbon Dioxide 27 Anion Gap 11 BUN 12 Creatinine 0.79 Est GFR ( Amer) > 60 Est GFR (Non-Af Amer) > 60 Glucose 93 Calcium 9.6 Total Bilirubin 0.3 Direct Bilirubin 0.3 Neonat Total Bilirubin Not Reportable Neonat Direct Bilirubin Not Reportable Neonat Indirect Bili Not Reportable AST 25 ALT 28 Alkaline Phosphatase 38 CK-MB (CK-2) Troponin I Total Protein 7.6 Albumin 4.2 TSH Free T4 Serum HCG, Qual NEGATIVE Urine Color Urine Appearance Urine pH Ur Specific [place] Urine Protein Urine Glucose (UA) Urine Ketones Urine Blood Urine Nitrite Urine Bilirubin Urine Urobilinogen Ur Leukocyte Esterase Urine WBC (Auto) Urine RBC (Auto) Squamous Epi Cells Auto Urine Mucus (Auto) Urine Ascorbic Acid Urine Opiates Screen Urine Methadone Screen Ur Barbiturates Screen Ur Phencyclidine Scrn Ur Amphetamines Screen U Benzodiazepines Scrn Urine Cocaine Screen U Marijuana (THC) Screen 09/26/17 09/26/17 09/26/17 14:40 14:40 14:40 WBC RBC Hgb Hct MCV MCH MCHC RDW Plt Count Seg Neutrophils % Lymphocytes % Monocytes % Eosinophils % Basophils % Absolute Neutrophils Absolute Lymphocytes Absolute Monocytes Absolute Eosinophils Absolute Basophils Sodium Potassium Chloride Carbon Dioxide Anion Gap BUN Creatinine Est GFR ( Amer) Est GFR (Non-Af Amer) Glucose Calcium Total Bilirubin Direct Bilirubin Neonat Total Bilirubin Neonat Direct Bilirubin Neonat Indirect Bili AST ALT Alkaline Phosphatase CK-MB (CK-2) 0.23 Troponin I < 0.012 Total Protein Albumin TSH 0.68 Free T4 1.00 Serum HCG, Qual Urine Color YELLOW Urine Appearance CLEAR Urine pH 8.0 Ur Specific [place] 1.019 Urine Protein NEGATIVE Urine Glucose (UA) NEGATIVE Urine Ketones NEGATIVE Urine Blood NEGATIVE Urine Nitrite NEGATIVE Urine Bilirubin NEGATIVE Urine Urobilinogen NEGATIVE Ur Leukocyte Esterase NEGATIVE Urine WBC (Auto) 0 Urine RBC (Auto) 0 Squamous Epi Cells Auto 2 Urine Mucus (Auto) RARE Urine Ascorbic Acid NEGATIVE Urine Opiates Screen Urine Methadone Screen Ur Barbiturates Screen Ur Phencyclidine Scrn Ur Amphetamines Screen U Benzodiazepines Scrn Urine Cocaine Screen U Marijuana (THC) Screen 09/26/17 14:40 WBC RBC Hgb Hct MCV MCH MCHC RDW Plt Count Seg Neutrophils % Lymphocytes % Monocytes % Eosinophils % Basophils % Absolute Neutrophils Absolute Lymphocytes Absolute Monocytes Absolute Eosinophils Absolute Basophils Sodium Potassium Chloride Carbon Dioxide Anion Gap BUN Creatinine Est GFR ( Amer) Est GFR (Non-Af Amer) Glucose Calcium Total Bilirubin Direct Bilirubin Neonat Total Bilirubin Neonat Direct Bilirubin Neonat Indirect Bili AST ALT Alkaline Phosphatase CK-MB (CK-2) Troponin I Total Protein Albumin TSH Free T4 Serum HCG, Qual Urine Color Urine Appearance Urine pH Ur Specific [place] Urine Protein Urine Glucose (UA) Urine Ketones Urine Blood Urine Nitrite Urine Bilirubin Urine Urobilinogen Ur Leukocyte Esterase Urine WBC (Auto) Urine RBC (Auto) Squamous Epi Cells Auto Urine Mucus (Auto) Urine Ascorbic Acid Urine Opiates Screen NEGATIVE Urine Methadone Screen NEGATIVE Ur Barbiturates Screen NEGATIVE Ur Phencyclidine Scrn NEGATIVE Ur Amphetamines Screen NEGATIVE U Benzodiazepines Scrn NEGATIVE Urine Cocaine Screen NEGATIVE U Marijuana (THC) Screen NEGATIVE Chest X-Ray 09/26/17 14:27 IMPRESSION: NO SIGNIFICANT RADIOGRAPHIC FINDING IN THE CHEST. - Vital Signs Vital signs: Temp Pulse Resp BP Pulse Ox 98.3 F 86 20 111/59 L 100 09/26/17 13:53 09/26/17 13:53 09/26/17 13:53 09/26/17 13:53 09/26/17 13:53 - Laboratory Result Diagrams: 09/26/17 14:40 09/26/17 14:40 Laboratory results interpreted by me: 09/26/17 14:40 Hgb 10.9 L Hct 33.7 L MCH 26.8 L RDW 15.7 H - EKG Interpretation by [place] EKG shows normal: Sinus rhythm - 84 bpm Rate: Normal When compared to previous EKG there are: No significant change Discharge - Discharge Clinical Impression: Lightheaded Condition: Stable Disposition: HOME, SELF-CARE Instructions: Normal Exam and Workup (OM) Additional Instructions: Follow up with your physician tomorrow for further care or return to the ED IMMEDIATELY if symptoms worsen or new concerns occur. If you cannot afford to follow up with your primary care physician a list of low cost clinics have been provided at the end of your discharge papers as well. Referrals: [facility] [Outside] - Follow up as needed
[2017-09-26 15:25] LABS: CREATINE KINASE MB 0.23 ng/mL (<4.55)
[2017-09-26 15:26] LABS: TROPONIN I < 0.012 ng/mL
--- NOTE | 2017-09-26 15:37 | EKG REPORT ---
SEVERITY:- NORMAL ECG - SINUS RHYTHM : Confirmed by: Germain Gama MD 26-Sep-2017 15:36:57
[2017-09-26 15:44] LABS: THYROID STIMULATING HORMONE 0.68 uIU/mL (0.47-4.68)
[2017-09-26 16:11] VITALS: BP 107/71
== END 2017-09-26 16:11 | disposition home or self-care (01) ==
LOC: ER 13:42
DX: R42 Dizziness and giddiness (principal); M54.2 Cervicalgia; Z90.49 Acquired absence of other specified parts of digestive tract
CPT/HCPCS: 36415; 71046; 80053; 80307; 81001; 82553; 84439; 84443; 84484; 84703; 85025; 93005; 93010; 99285

== ENCOUNTER 2017-10-21 10:42 | Emergency (ER) | payer OTHER ==
--- NOTE | 2017-10-21 11:36 | ER Document Report ---
ED General - General Chief Complaint: Toothache Stated Complaint: TOOTH PAIN, VAGINAL DISCHARGE Time Seen by Provider: 10/21/17 11:34 Mode of Arrival: Ambulatory Information source: Patient Notes: Patient is a 27-year-old female who presents with 2 different complaints. Her first complaint is that she is having upper left toothache that started the past 2 days. She denies any fever, chills, swelling, drainage. She has not seen a dentist. She is not taking any pain medication for this. Her second complaint is that she has been having a yellow vaginal discharge for the past 3 days that she believes is due to bacterial vaginosis. She denies any fever, chills, abdominal pain, nausea, vomiting, diarrhea, dysuria, hematuria or vaginal bleeding. She does endorse recent unprotected sex. Last menstrual period 10-14-17. When questioned up about gonorrhea/ chlamydia, she does request to be treated. TRAVEL OUTSIDE OF THE [place] IN LAST 30 DAYS: No - Related Data Allergies/Adverse Reactions: No Known Allergies Allergy (Verified 10/21/17 10:43) Past Medical History - General Information source: Patient - Social History Smoking Status: Unknown if Ever Smoked Family History: CAD, Hypertension, Other - Patient states her dad does not have any medical problems. Her mom at age 42. She states she had lung cancer, scleroderma, interstitial lung disease and for the last year of her life is on hemodialysis.Patient has 2 siblings they are healthy - Past Medical History Cardiac Medical History: Denies: Hx Coronary Artery Disease, Hx Heart Attack, Hx Hypertension Pulmonary Medical History: Denies: Hx Asthma, Hx Bronchitis, Hx COPD, Hx Pneumonia Neurological Medical History: Reports: Hx Migraine. Denies: Hx Cerebrovascular Accident, Hx Seizures Renal/ Medical History: Denies: Hx Peritoneal Dialysis Musculoskeltal Medical History: Denies Hx Arthritis Infectious Medical History: Denies: Hx MRSA Past Surgical History: Reports: Hx Cholecystectomy. Denies: Hx Hysterectomy, Hx Pacemaker - Immunizations Hx Diphtheria, Pertussis, Tetanus Vaccination: Yes Review of Systems - Review of Systems Constitutional: See HPI EENT: See HPI Cardiovascular: No symptoms reported Respiratory: No symptoms reported Gastrointestinal: No symptoms reported Genitourinary: See HPI Female Genitourinary: See HPI Musculoskeletal: No symptoms reported Skin: No symptoms reported Hematologic/Lymphatic: No symptoms reported Neurological/Psychological: No symptoms reported Physical Exam - Vital signs Vitals: Temp Pulse Resp BP Pulse Ox 99.4 F 89 16 120/71 89 L 10/21/17 10:49 10/21/17 10:49 10/21/17 10:49 10/21/17 10:49 10/21/17 10:49 - Notes Notes: PHYSICAL EXAM: CONSTITUTIONAL: Alert and oriented, well-appearing and in no acute distress. HENT: Normocephalic, atraumatic. Oropharynx clear without erythema, tonsilar exudate or malocclusion. Trachea midline. Uvula midline. Moist mucous membranes. Dental caries to tooth #13. No evidence of gingival or buccal mucosal abscess. EYES: Pupils equal round and reactive to light, EOM intact. Sclera anicteric, conjunctiva are normal. No entrapment. NECK: supple without lymphadenopathy. No midline tenderness or paraspinous muscle spasms. No step-offs or deformities. ROM intact. Negative Kernig's and negative Brudzinski's. HEART: Regular rate and rhythm without murmurs. LUNGS: CTAB and equal. No wheezes, rales or rhonchi. GI: Normactive bowel sounds. Abdomen is soft, nontender, non-distended. No organomegaly. no CVAT. No rebound or guarding. Negative McBurney's point tenderness, negative Vann sign. Negative Rovsing's sign, negative Psoas sign. FUEL CELL TECHNICIAN: External exam normal. No rashes or lesions. Moderate yellow vaginal discharge, no vaginal bleeding. Cervix without lesions. No cervical motion tenderness. EXTREMITIES: no bony tenderness, erythema, edema, ecchymosis or deformity. Normal range of motion, no pitting edema. No cyanosis. Cap Refill <3 seconds. NEURO: Cranial nerves grossly intact. Normal sensory/motor exams. PSYCH: Normal mood, normal affect. SKIN: Warm and dry. Normal turgor. No rashes or lesions noted. Course - Re-evaluation Re-evalutation: 10/21/17 11:36 Patient seen and examined. Well-hydrated and well-appearing, vital signs are stable, no acute distress. Patient speaking in full sentences without difficulty. No evidence of dental abscess on exam. Will treat with antibiotic for empiric infection. Pelvic exam reveals vaginal discharge, will obtain swabs. 10/21/17 13:36 Reviewed labs. G/C pending, wet prep with 3+ WBCs, no trich or clue cells. Neg . Urinalysis unremarkable. Discussed results with patient. She requested treatment for G/C - given rocephin/zithromax here. Patient reports GI upset with flagyl, will prescribe clindamycin - this should cover vaginal infection and dental infection. At this time, will discharge with return precautions and follow-up recommendations. Verbal discharge instructions given at the bedside and opportunity for questions given. Medication warnings reviewed. Patient is in agreement with this plan and has verbalized understanding of return precautions and the need for primary care follow-up in the next 24-72 hours. - Vital Signs Vital signs: Temp Pulse Resp BP Pulse Ox 99.4 F 96 16 112/65 96 10/21/17 13:43 10/21/17 13:43 10/21/17 13:43 10/21/17 13:43 10/21/17 13:43 Procedures - Pelvic Exam Pelvic exam Cultures obtained: Yes Wet prep obtained: Yes Herpes culture obtained: No Foreign body removed: No Bimanual exam performed: Yes Witnessed by: Lisa Jules RN Notes: 10/21/17 13:38 moderate yellow/white vaginal discharge, no vaginal bleeding, no CMT Discharge - Discharge Clinical Impression: Toothache, Bacterial vaginosis Condition: Stable Disposition: HOME, SELF-CARE Additional Instructions: VAGINITIS: Your exam shows that you have vaginitis, a vaginal infection. The infection can be caused by a many different organisms, including trichomonas or Gardnerella. The usual symptoms are vaginal irritation and discharge. The treatment is usually antibiotics such as Flagyl. Laboratory tests can determine which germ is responsible. Use the medication as prescribed. Because this infection can be transmitted sexually, your sexual partner may need to be checked and treated also. If your physician has not discussed this with you, please check before resuming sexual relations. If a culture shows gonorrhea or chlamydia, the infection must be reported to the health department. Call the doctor if you develop pelvic pain, fever, or problems with urination, or if you don't improve as expected. VAGINOSIS, BACTERIAL: Your exam shows you have bacterial vaginosis. This condition is due to an overgrowth of bacteria in the vagina. Symptoms may include vaginal itching or pain, a smelly discharge, and sometimes burning with urination. Normally this is not transmitted by sexual contact. Vaginosis can be treated with oral or topical antibiotics. Metronidazole ( Flagyl) pills are usually effective. Topical vaginal creams include Cleocin and Metro-Gel. You should avoid sexual contact until your symptoms are all better. Call the doctor if you develop pelvic pain, fever, or problems with urination, or if you don't improve as expected. ANTIBIOTIC THERAPY: You have been given an antibiotic prescription. It's important that you take all the medication, unless instructed otherwise by your physician. Failure to complete the entire course can result in relapse of your condition. Common side effects of antibiotics include nausea, intestinal cramping, or diarrhea. Women may develop vaginal yeast infections, and babies can get yeast (thrush) in the mouth following the use of antibiotics. Contact your physician if you develop significant side effects from this medication. Allergy to this antibiotic can result in hives, wheezing, faintness, or itching. If symptoms of allergy occur, stop the medication and call the doctor. Dental Infection or Abscess You have an infection, perhaps an abscess (pus formation) of the gum around one of your teeth, which is probably decayed. If there is an abscess, it may drain on its own or it may need to be opened or lanced. Severe swelling or drainage around a tooth usually means a deep dental abscess which usually requires evaluation and treatment by a dentist or oral surgeon. Antibiotics may be prescribed while awaiting dental treatment. If you develop high fever with chills, worsening pain, or increasing swelling in the area, see a dentist or oral surgeon immediately or return to the Emergency Department immediately. FOLLOW-UP CARE: If you have been referred to a physician for follow-up care, call the physician s office for an appointment as you were instructed or within the next two days. If you experience worsening or a significant change in your symptoms, notify the physician immediately or return to the Emergency Department at any time for re-evaluation. Prescriptions: Clindamycin HCl 300 mg PO Q12H 7 Days #14 capsule Hydrocodone/Acetaminophen [Lloyd 5-325 mg Tablet] 1 tab PO Q6H PRN #10 tablet PRN Reason:
[2017-10-21] MEDS ORDERED: AZITHROMYCIN 250 MG TABLET PO ONE (12:39)
[2017-10-21] MEDS ORDERED: CEFTRIAXONE INJ 250 MG VIAL IM ONE ×2 (12:39→12:45)
[2017-10-21] MEDS ORDERED: LIDOCAINE 1% INJ-PF (10 MG/ML) 30 ML SDV INJ ONE ×2 (12:39→12:45)
[2017-10-21 12:47] LABS: APPEARANCE,URINE CLEAR; BILIRUBIN,URINE NEGATIVE (NEGATIVE); COLOR,URINE COLORLESS; GLUCOSE, URINE NEGATIVE (NEGATIVE); KETONES,URINE NEGATIVE (NEGATIVE); LEUKOCYTE ESTERASE,URINE NEGATIVE (NEGATIVE); NITRITE,URINE NEGATIVE (NEGATIVE); PROTEIN,URINE NEGATIVE (NEGATIVE); URINE SPECIFIC GRAVITY 1.005; UROBILINOGEN,URINE NEGATIVE mg/dL (<2.0)
[2017-10-21 13:01] LABS: RBCS (WET MOUNT) RARE RBCS SEEN; T.VAGINALIS (WET MOUNT) NO TRICHOMONAS SEEN; WBCS (WET MOUNT) 3+ WBCS SEEN; YEAST (WET MOUNT) NO YEAST SEEN
[2017-10-21 13:45] VITALS: BP 112/65
[2017-10-21 14:25] LABS: CHLAM PCR NOT DETECTED (NOT DETECT); GON PCR NOT DETECTED (NOT DETECT)
== END 2017-10-21 13:45 | disposition home or self-care (01) ==
LOC: ER 10:42
DX: N76.0 Acute vaginitis (principal); B96.89 Other specified bacterial agents as the cause of diseases classified elsewhere; K02.9 Dental caries, unspecified; K08.89 Other specified disorders of teeth and supporting structures; Z20.2 Contact with and (suspected) exposure to infections with a predominantly sexual mode of transmission
CPT/HCPCS: 99283; 96372; 87210; 81025; 81001; 87491; 87591; J3490; J0696

== ENCOUNTER 2017-12-24 01:48 | Emergency (ER) | payer MEDICAID, OTHER ==
--- NOTE | 2017-12-24 02:45 | ER Document Report ---
ED General - General Chief Complaint: General Weakness Stated Complaint: FLU LIKE SYMPTOMS Time Seen by Provider: 12/24/17 02:44 Mode of Arrival: Ambulatory Information source: Patient, Relative Notes: 27-year-old female with no reported past medical history presents with complaint of intermittent shortness of breath, intermittent chest tightness and lightheadedness. Patient states that symptoms have been ongoing intermittently for over a year. She states today she was at [facility] and began to feel lightheaded, shaky. She denies any recent illnesses, fever, headache, nausea, vomiting, chest pain, recent cough, abdominal pain, dysuria, hematuria, vaginal discharge. Patient denies history of asthma. She denies any recent travel, surgery, leg injury, leg swelling, estrogen use. She denies any previous history of PE or DVT. Patient currently is symptom free. TRAVEL OUTSIDE OF THE [place] IN LAST 30 DAYS: No - HPI Onset: This afternoon Onset/Duration: Sudden, Gone Quality of pain: No pain Severity: None Associated symptoms: Shortness of breath, Weakness Exacerbated by: Denies Relieved by: Denies Similar symptoms previously: Yes Recently seen / treated by doctor: Yes - Related Data Allergies/Adverse Reactions: No Known Allergies Allergy (Verified 10/21/17 10:43) Past Medical History - General Information source: Patient, COUNT INCLUDES THE [facility] Records - Social History Smoking Status: Never Smoker Frequency of alcohol use: None Drug Abuse: None Lives with: Family Family History: CAD, Hypertension, Other - Patient states her dad does not have any medical problems. Her mom at age 42. She states she had lung cancer, scleroderma, interstitial lung disease and for the last year of her life is on hemodialysis.Patient has 2 siblings they are healthy Patient has suicidal ideation: No Patient has homicidal ideation: No - Past Medical History Cardiac Medical History: Denies: Hx Coronary Artery Disease, Hx Heart Attack, Hx Hypertension Pulmonary Medical History: Denies: Hx Asthma, Hx Bronchitis, Hx COPD, Hx Pneumonia Neurological Medical History: Reports: Hx Migraine. Denies: Hx Cerebrovascular Accident, Hx Seizures Renal/ Medical History: Denies: Hx Peritoneal Dialysis Musculoskeltal Medical History: Denies Hx Arthritis Infectious Medical History: Denies: Hx MRSA Past Surgical History: Reports: Hx Cholecystectomy. Denies: Hx Hysterectomy, Hx Pacemaker - Immunizations Hx Diphtheria, Pertussis, Tetanus Vaccination: Yes Review of Systems - Review of Systems Constitutional: Weakness. denies: Fever EENT: denies: Blurred vision, Throat pain, Vertigo Cardiovascular: Dizziness, Lightheaded. denies: Chest pain, Palpitations Respiratory: Short of breath. denies: Cough, Hurts to breathe, Wheezing Gastrointestinal: denies: Abdominal pain Genitourinary: denies: Dysuria, Hematuria Female Genitourinary: Last menstrual period - 1 week prior to arrival Musculoskeletal: denies: Back pain, Leg swelling, Ankle swelling Skin: No symptoms reported Hematologic/Lymphatic: denies: Easy bleeding Neurological/Psychological: denies: Confusion, Seizure, Lost consciousness, Headaches, Speech impairment -: Yes All other systems reviewed and negative Physical Exam - Vital signs Vitals: Temp Pulse Resp BP Pulse Ox 97.7 F 92 17 111/60 100 12/24/17 01:48 12/24/17 01:48 12/24/17 01:48 12/24/17 01:48 12/24/17 01:48 - Notes Notes: PHYSICAL EXAMINATION: GENERAL: Well-appearing, well-nourished and in no acute distress. HEAD: Atraumatic, normocephalic. EYES: Pupils equal round and reactive to light, extraocular movements intact, conjunctiva are normal. ENT: Nares patent, oropharynx clear without exudates. Moist mucous membranes. NECK: Normal range of motion, supple without lymphadenopathy LUNGS: Breath sounds clear to auscultation bilaterally and equal. No wheezes rales or rhonchi. HEART: Regular rate and rhythm without murmurs ABDOMEN: Soft, nontender, nondistended abdomen. No guarding, no rebound. No masses appreciated. Female : deferred Musculoskeletal: Normal range of motion, no pitting or edema. No cyanosis. NEUROLOGICAL: Cranial nerves grossly intact. Normal speech, normal gait. Normal sensory, motor exams PSYCH: Normal mood, normal affect. SKIN: Warm, Dry, normal turgor, no rashes or lesions noted. Course - Re-evaluation Re-evalutation: Laboratory 12/24/17 03:22 Urine Color YELLOW Urine Appearance CLEAR Urine pH 6.0 Ur Specific [place] 1.014 Urine Protein NEGATIVE Urine Glucose (UA) NEGATIVE Urine Ketones NEGATIVE Urine Blood NEGATIVE Urine Nitrite NEGATIVE Urine Bilirubin NEGATIVE Urine Urobilinogen NEGATIVE Ur Leukocyte Esterase NEGATIVE Urine WBC (Auto) 1 Urine RBC (Auto) 0 Squamous Epi Cells Auto <1 Urine Mucus (Auto) RARE Urine Ascorbic Acid NEGATIVE Urine HCG, Qual Cancelled 12/24/17 03:47 27-year-old female with no reported past medical history presents with complaint of intermittent shortness of breath, intermittent chest tightness and lightheadedness. Patient states that symptoms have been ongoing intermittently for over a year. She states today she was at [facility] and began to feel lightheaded, shaky. She denies any recent illnesses, fever, headache, nausea, vomiting, chest pain, recent cough, abdominal pain, dysuria, hematuria, vaginal discharge. Patient denies history of asthma. She denies any recent travel, surgery, leg injury, leg swelling, estrogen use. She denies any previous history of PE or DVT. Patient currently is symptom free. Patient was seen by myself upon arrival. Vital signs were reviewed. Patient is afebrile , normotensive and not hypoxic. Patient does not appear toxic or dehydrated. They are in no acute distress. Previous medical records and nursing notes reviewed. Patient has a normal physical exam. EKG was obtained which showed her to be in normal sinus rhythm at a rate of 92. Urinalysis is without infection. Chest x-ray is within normal limits. Patient is PERC negative. On reevaluation patient is resting comfortably. She was reassured. Patient provided the opportunity to ask questions, and express concerns. Discharge instructions discussed. Patient is agreeable with discharge home. Return indications explained and discussed with the patient who displays understanding. Patient encouraged to return to the emergency department immediately with any concerns. 12/24/17 03:48 12/24/17 04:22 - Vital Signs Vital signs: Temp Pulse Resp BP Pulse Ox 97.7 F 92 17 111/60 100 12/24/17 01:48 12/24/17 01:48 12/24/17 01:48 12/24/17 01:48 12/24/17 01:48 - Diagnostic Test Radiology reviewed: Image reviewed, Reports reviewed - EKG Interpretation by Me EKG shows normal: Sinus rhythm Rate: Normal Rhythm: NSR Discharge - Discharge Clinical Impression: Dizziness, Lightheadedness, Chest tightness Disposition: HOME, SELF-CARE Instructions: Dizziness ([facility]), Dyspnea, Nonspecific ([facility]) Additional Instructions: Follow up with your physician tomorrow for further care or return to the ED IMMEDIATELY if symptoms worsen or new concerns occur. If you cannot afford to follow up with your primary care physician a list of low cost clinics have been provided at the end of your discharge papers as well.
[2017-12-24 03:33] LABS: APPEARANCE,URINE CLEAR; BILIRUBIN,URINE NEGATIVE (NEGATIVE); COLOR,URINE YELLOW; GLUCOSE, URINE NEGATIVE (NEGATIVE); KETONES,URINE NEGATIVE (NEGATIVE); LEUKOCYTE ESTERASE,URINE NEGATIVE (NEGATIVE); NITRITE,URINE NEGATIVE (NEGATIVE); PROTEIN,URINE NEGATIVE (NEGATIVE); URINE SPECIFIC GRAVITY 1.014; UROBILINOGEN,URINE NEGATIVE mg/dL (<2.0)
--- NOTE | 2017-12-24 04:09 | RADIOLOGY REPORT (SQ) ---
EXAM DESCRIPTION: 2 views of the chest CLINICAL HISTORY: sob COMPARISON: None. FINDINGS: Frontal and lateral views of the chest. The cardiomediastinal silhouette has normal size and contour. No consolidation, pneumothorax, or pleural effusion. No displaced rib fractures identified. Postoperative change of the right upper abdomen. IMPRESSION: 1. No acute pulmonary process identified.
[2017-12-24 04:40] VITALS: BP 118/66
--- NOTE | 2017-12-24 08:44 | EKG REPORT ---
SEVERITY:- NORMAL ECG - SINUS RHYTHM : Confirmed by: Nathalie Stern 24-Dec-2017 08:43:02
== END 2017-12-24 04:24 | disposition home or self-care (01) ==
LOC: ER 01:48
DX: R42 Dizziness and giddiness (principal); R07.9 Chest pain, unspecified; R53.1 Weakness; R06.02 Shortness of breath
CPT/HCPCS: 71046; 81001; 93005; 93010; 99285

== ENCOUNTER 2018-03-14 09:14 | Emergency (ER) | payer OTHER ==
[2018-03-14] MEDS ORDERED: ONDANSETRON HCL INJ/PF 4 MG/2 ML SDV IV ONE (10:59)
[2018-03-14 11:14] LABS: APPEARANCE,URINE SLIGHTLY-CLOUDY; BILIRUBIN,URINE NEGATIVE (NEGATIVE); GLUCOSE, URINE NEGATIVE (NEGATIVE); KETONES,URINE NEGATIVE (NEGATIVE); LEUKOCYTE ESTERASE,URINE NEGATIVE (NEGATIVE); NITRITE,URINE NEGATIVE (NEGATIVE); PROTEIN,URINE 30 mg/dL (NEGATIVE); URINE SPECIFIC GRAVITY 1.031; UROBILINOGEN,URINE NEGATIVE mg/dL (<2.0)
[2018-03-14 11:15] LABS: COLOR,URINE YELLOW
[2018-03-14 11:19] LABS: ALANINE AMINOTRANSFERASE 25 U/L (9-52); ALBUMIN 4.6 g/dL (3.5-5.0); ALKALINE PHOSPHATASE 45 U/L (38-126); ANION GAP 13 (5-19); ASPARTATE AMINO TRANSFERASE 30 U/L (14-36); BILIRUBIN,DIRECT 0.2 mg/dL (0.0-0.4); BILIRUBIN,TOTAL 0.6 mg/dL (0.2-1.3); BLOOD UREA NITROGEN 10 mg/dL (7-20); CALCIUM 9.9 mg/dL (8.4-10.2); CARBON DIOXIDE 28 mmol/L (22-30); CHLORIDE 103 mmol/L (98-107); GLUCOSE 89 mg/dL (75-110); POTASSIUM 4.3 mmol/L (3.6-5.0); TOTAL PROTEIN 8.9 g/dL (6.3-8.2)
[2018-03-14 11:20] LABS: ABSOLUTE EOSINOPHILS # (AUTO) 0.1 10^3/uL (0.0-0.6); ABSOLUTE LYMPHOCYTES (AUTO) 1.1 10^3/uL (0.5-4.7); ABSOLUTE MONOCYTES (AUTO) 0.4 10^3/uL (0.1-1.4); ABSOLUTE NEUT (AUTO) 2.3 10^3/uL (1.7-8.2); BASOPHILS % (AUTO) 0.5 % (0-2); EOSINOPHILS % (AUTO) 1.9 % (0-6); HEMATOCRIT 36.1 % (36.0-47.0); HEMOGLOBIN 11.8 g/dL (12.0-15.5); LYMPHOCYTES % (AUTO) 29.1 % (13-45); MEAN CORPUSCULAR HEMOGLOBIN 27.3 pg (27.0-33.4); MEAN CORPUSCULAR HGB CONC 32.8 g/dL (32.0-36.0); MEAN CORPUSCULAR VOLUME 83 fl (80-97); MONOCYTES % (AUTO) 9.6 % (3-13); PLATELET COUNT 237 10^3/uL (150-450); RED BLOOD COUNT 4.33 10^6/uL (3.72-5.28); SEGMENTED NEUTROPHILS % (AUTO) 58.9 % (42-78); TOTAL CELLS COUNTED % (AUTO) 100 %; WHITE BLOOD COUNT 3.9 10^3/uL (4.0-10.5)
--- NOTE | 2018-03-14 14:48 | ER Document Report ---
ED General - General Chief Complaint: Abdominal Pain Stated Complaint: ABDOMINAL PAIN Time Seen by Provider: 03/14/18 10:56 Mode of Arrival: Ambulatory Information source: Patient, Relative, [facility] Records Notes: 27-year-old female with migraines, reflux presents with 1 week of epigastric pain that she describes as intermittent, achy. Patient has had associated nausea without vomiting. She also complains of pain with urination and increased urinary frequency that started 3 days ago but now has resolved. She does state that she has had vaginal discharge. She denies any concern for STD. She is in a monogamous relationship with a female. Patient denies any fever, chills, chest pain, shortness of breath, flank pain. Her last menstrual period was 1 week ago. Patient has a surgical history of cholecystectomy TRAVEL OUTSIDE OF THE [place] IN LAST 30 DAYS: Yes - [facility] Onset: Other Onset/Duration: Gradual, Persistent, Better Quality of pain: Achy Severity: Mild Associated symptoms: Nausea. denies: Chest pain, Diarrhea, Fever, Vomiting, Shortness of breath Exacerbated by: Denies Relieved by: Denies Similar symptoms previously: Yes Recently seen / treated by doctor: Yes - Related Data Allergies/Adverse Reactions: No Known Allergies Allergy (Verified 03/14/18 09:15) Past Medical History - General Information source: Patient, [facility] Records - Social History Smoking Status: Never Smoker Frequency of alcohol use: None Drug Abuse: None Lives with: Spouse/Significant other Family History: CAD, Hypertension, Other - Patient states her dad does not have any medical problems. Her mom at age 42. She states she had lung cancer, scleroderma, interstitial lung disease and for the last year of her life is on hemodialysis.Patient has 2 siblings they are healthy Patient has suicidal ideation: No Patient has homicidal ideation: No - Past Medical History Cardiac Medical History: Denies: Hx Coronary Artery Disease, Hx Heart Attack, Hx Hypertension Pulmonary Medical History: Denies: Hx Asthma, Hx Bronchitis, Hx COPD, Hx Pneumonia Neurological Medical History: Reports: Hx Migraine. Denies: Hx Cerebrovascular Accident, Hx Seizures Renal/ Medical History: Denies: Hx Peritoneal Dialysis Musculoskeletal Medical History: Denies Hx Arthritis Infectious Medical History: Denies: Hx MRSA Past Surgical History: Reports: Hx Cholecystectomy. Denies: Hx Hysterectomy, Hx Pacemaker - Immunizations Hx Diphtheria, Pertussis, Tetanus Vaccination: Yes Review of Systems - Review of Systems Notes: REVIEW OF SYSTEMS: CONSTITUTIONAL : Denies fever, chills, or sweats. Denies recent illness. Denies weight loss, recent hospitalizations. EENT: Denies visual changes, eye pain. Denies nasal or sinus congestion or discharge. Denies sore throat, oral lesions, difficulty swallowing. CARDIOVASCULAR: Denies chest pain. Denies palpitations. Denies lower extremity edema. RESPIRATORY: Denies cough, cold, or chest congestion. Denies shortness of breath, wheezing. GASTROINTESTINAL: Denies distention. Denies vomiting, or diarrhea. Denies blood in vomitus, stools, or per rectum. Denies black, tarry stools. Denies constipation. GENITOURINARY: Denies difficulty urinating, blood in urine, MUSCULOSKELETAL: Denies back or neck pain or stiffness. Denies joint pain or swelling. SKIN: Denies rash, lesions or sores. HEMATOLOGIC : Denies easy bruising or bleeding. LYMPHATIC: Denies swollen glands. NEUROLOGICAL: Denies confusion or altered mental status. Denies passing out or loss of consciousness. Denies dizziness or lightheadedness. Denies headache. Denies weakness or paralysis. Denies problems difficulty with ambulation, slurred speech. Denies sensory loss, numbness, or tingling. Denies seizures. PSYCHIATRIC: Denies anxiety or stress. Denies depression, suicidal ideation, or homicidal ideation. Denies visual or auditory hallucinations. Physical Exam - Vital signs Vitals: Temp Pulse Resp BP Pulse Ox 98.5 F 85 16 107/71 100 03/14/18 09:25 03/14/18 09:25 03/14/18 09:25 03/14/18 09:25 03/14/18 09:25 Interpretation: No: Hypotensive, Tachycardic, Hypoxic, Febrile - Notes Notes: PHYSICAL EXAMINATION: GENERAL: Well-appearing, well-nourished and in no acute distress. HEAD: Atraumatic, normocephalic. EYES: Pupils equal round and reactive to light, extraocular movements intact, conjunctiva are normal. ENT: Nares patent, oropharynx clear without exudates. Moist mucous membranes. NECK: Normal range of motion, supple without lymphadenopathy LUNGS: Breath sounds clear to auscultation bilaterally and equal. No wheezes rales or rhonchi. HEART: Regular rate and rhythm without murmurs ABDOMEN: Soft, nontender, nondistended abdomen. No guarding, no rebound. No masses appreciated. Female : deferred Musculoskeletal: Normal range of motion, no pitting or edema. No cyanosis. NEUROLOGICAL: Cranial nerves grossly intact. Normal speech, normal gait. Normal sensory, motor exams PSYCH: Normal mood, normal affect. SKIN: Warm, Dry, normal turgor, no rashes or lesions noted. Course - Re-evaluation Re-evalutation: 03/15/18 02:14 Laboratory 03/14/18 03/14/18 03/14/18 10:40 10:40 10:40 WBC 3.9 L RBC 4.33 Hgb 11.8 L Hct 36.1 MCV 83 MCH 27.3 MCHC 32.8 RDW 17.0 H Plt Count 237 Seg Neutrophils % 58.9 Lymphocytes % 29.1 Monocytes % 9.6 Eosinophils % 1.9 Basophils % 0.5 Absolute Neutrophils 2.3 Absolute Lymphocytes 1.1 Absolute Monocytes 0.4 Absolute Eosinophils 0.1 Absolute Basophils 0.0 Sodium 144.0 Potassium 4.3 Chloride 103 Carbon Dioxide 28 Anion Gap 13 BUN 10 Creatinine 0.70 Est GFR ( Amer) > 60 Est GFR (Non-Af Amer) > 60 Glucose 89 Calcium 9.9 Total Bilirubin 0.6 Direct Bilirubin 0.2 Neonat Total Bilirubin Not Reportable Neonat Direct Bilirubin Not Reportable Neonat Indirect Bili Not Reportable AST 30 ALT 25 Alkaline Phosphatase 45 Total Protein 8.9 H Albumin 4.6 Beta HCG, Quant < 2.39 Total Beta HCG NEGATIVE Urine Color YELLOW Urine Appearance SLIGHTLY-CLOUDY Urine pH 6.0 Ur Specific [place] 1.031 Urine Protein 30 H Urine Glucose (UA) NEGATIVE Urine Ketones NEGATIVE Urine Blood NEGATIVE Urine Nitrite NEGATIVE Urine Bilirubin NEGATIVE Urine Urobilinogen NEGATIVE Ur Leukocyte Esterase NEGATIVE Urine WBC (Auto) 4 Urine RBC (Auto) 1 Urine Bacteria (Auto) TRACE Squamous Epi Cells Auto 7 Urine Mucus (Auto) MANY Urine Ascorbic Acid NEGATIVE Epi Cells (Wet Prep) Bacteria (Wet Prep) Trichomonas (Wet Prep) Vaginal WBC Vaginal RBC Vaginal Yeast Chlamydia DNA (PCR) N.gonorrhoeae DNA (PCR) 03/14/18 03/14/18 14:55 15:00 WBC RBC Hgb Hct MCV MCH MCHC RDW Plt Count Seg Neutrophils % Lymphocytes % Monocytes % Eosinophils % Basophils % Absolute Neutrophils Absolute Lymphocytes Absolute Monocytes Absolute Eosinophils Absolute Basophils Sodium Potassium Chloride Carbon Dioxide Anion Gap BUN Creatinine Est GFR ( Amer) Est GFR (Non-Af Amer) Glucose Calcium Total Bilirubin Direct Bilirubin Neonat Total Bilirubin Neonat Direct Bilirubin Neonat Indirect Bili AST ALT Alkaline Phosphatase Total Protein Albumin Beta HCG, Quant Total Beta HCG Urine Color Urine Appearance Urine pH Ur Specific [place] Urine Protein Urine Glucose (UA) Urine Ketones Urine Blood Urine Nitrite Urine Bilirubin Urine Urobilinogen Ur Leukocyte Esterase Urine WBC (Auto) Urine RBC (Auto) Urine Bacteria (Auto) Squamous Epi Cells Auto Urine Mucus (Auto) Urine Ascorbic Acid Epi Cells (Wet Prep) 3+ EPITHELIALS SEEN Bacteria (Wet Prep) 4+ BACTERIA SEEN Trichomonas (Wet Prep) NO TRICHOMONAS SEEN Vaginal WBC 1+ WBCS SEEN Vaginal RBC FEW RBCS SEEN Vaginal Yeast YEAST SEEN Chlamydia DNA (PCR) NOT DETECTED N.gonorrhoeae DNA (PCR) NOT DETECTED 03/15/18 02:15 27-year-old female with migraines, reflux presents with 1 week of epigastric pain that she describes as intermittent, achy. Patient has had associated nausea without vomiting. She also complains of pain with urination and increased urinary frequency that started 3 days ago but now has resolved. She does state that she has had vaginal discharge. She denies any concern for STD. She is in a monogamous relationship with a female. Patient was seen by myself upon arrival. Vital signs were reviewed. Patient is afebrile, normotensive and not hypoxic. Patient does not appear toxic or dehydrated. They are in no acute distress. Previous medical records and nursing notes reviewed. Significant findings include a wet prep that is consistent with bacterial vaginosis. Gonorrhea and Chlamydia are negative. Urinalysis is not consistent with infection. Patient with a benign abdominal exam. When asked patient stated that she preferred the vaginal suppositories but I did get a call from the pharmacist stating that the patient could not afford this medication so she was prescribed p.o. Flagyl. CBC is without leukocytosis or anemia. CMP shows no electrolyte abnormalities. LFTs are essentially unremarkable except for mildly elevated total protein. Patient eating and drinking prior to discharge. Patient provided the opportunity to ask questions , and express concerns. Discharge instructions discussed. Patient is agreeable with discharge home. Return indications explained and discussed with the patient who displays understanding. Patient encouraged to return to the emergency department immediately with any concerns. 03/15/18 02:15 03/15/18 02:17 Patient is eating and drinking - Vital Signs Vital signs: Temp Pulse Resp BP Pulse Ox 98.5 F 78 14 108/78 100 03/14/18 16:24 03/14/18 16:24 03/14/18 16:24 03/14/18 16:24 03/14/18 16:24 - Laboratory Result Diagrams: 03/14/18 10:40 03/14/18 10:40 Laboratory results interpreted by me: 03/14/18 03/14/18 03/14/18 10:40 10:40 10:40 WBC 3.9 L Hgb 11.8 L RDW 17.0 H Total Protein 8.9 H Urine Protein 30 H Discharge - Discharge Clinical Impression: Epigastric abdominal pain, Dysuria, Vaginal discharge, Bacterial vaginosis Condition: Good Disposition: HOME, SELF-CARE Instructions: Abdominal Pain ([facility]), Vaginosis, Bacterial ([facility]) Referrals: GWEN DELGADO MD [Primary Care Provider] - Follow up as needed
[2018-03-14 15:40] LABS: T.VAGINALIS (WET MOUNT) NO TRICHOMONAS SEEN; YEAST (WET MOUNT) YEAST SEEN
[2018-03-14 15:41] LABS: BACTERIA (WET MOUNT) 4+ BACTERIA SEEN; EPITHELIALS (WET MOUNT) 3+ EPITHELIALS SEEN; RBCS (WET MOUNT) FEW RBCS SEEN; WBCS (WET MOUNT) 1+ WBCS SEEN
[2018-03-14 16:24] VITALS: BP 108/78
[2018-03-14 17:17] LABS: CHLAM PCR NOT DETECTED (NOT DETECT); GON PCR NOT DETECTED (NOT DETECT)
== END 2018-03-14 16:24 | disposition home or self-care (01) ==
LOC: ER 09:14
DX: R10.13 Epigastric pain (principal); N76.0 Acute vaginitis; B96.89 Other specified bacterial agents as the cause of diseases classified elsewhere; R11.0 Nausea; R30.0 Dysuria; R35.0 Frequency of micturition; Z90.49 Acquired absence of other specified parts of digestive tract
CPT/HCPCS: 99284; 96374; 36415; 87210; 84702; 85025; 80053; 81001; 87491; 87591; J2405

== ENCOUNTER 2018-05-04 06:06 | Emergency (ER) | payer OTHER ==
--- NOTE | 2018-05-04 07:20 | ER Document Report ---
ED General - General Chief Complaint: Shortness Of Breath Stated Complaint: SHORTNESS OF BREATH Time Seen by Provider: 05/04/18 06:39 Mode of Arrival: Ambulatory Information source: Patient Notes: 27-year-old female presents emergency department with complaints of chest pain and shortness of breath. Patient states that her symptoms have been intermittent over the last few months. She states that a year ago she was worked up thoroughly and had a stress test and echo done. Patient states that no formal diagnosis was made. She has not followed up with cardiology since then. She describes her chest pain as substernal in nature. She describes it as a pressure sensation. No radiation of the pain. No alleviating or exacerbating factors. She denies a history of coronary artery disease, diabetes , hypertension, hyperlipidemia, smoking, family history of coronary artery disease. Patient also denies any recent travel, recent surgery, hormone use, history of malignancy, history of DVT or PE. TRAVEL OUTSIDE OF THE [place] IN LAST 30 DAYS: No - HPI Onset: Yesterday Onset/Duration: Gradual Quality of pain: Achy Severity: Moderate Associated symptoms: Diarrhea, Nausea, Vomiting Exacerbated by: Denies Relieved by: Denies Similar symptoms previously: No Recently seen / treated by doctor: No - Related Data Allergies/Adverse Reactions: No Known Allergies Allergy (Verified 05/04/18 08:09) Past Medical History - Social History Smoking Status: Never Smoker Family History: CAD, Hypertension, Other - Patient states her dad does not have any medical problems. Her mom at age 42. She states she had lung cancer, scleroderma, interstitial lung disease and for the last year of her life is on hemodialysis.Patient has 2 siblings they are healthy Patient has suicidal ideation: No Patient has homicidal ideation: No - Past Medical History Cardiac Medical History: Denies: Hx Coronary Artery Disease, Hx Heart Attack, Hx Hypertension Pulmonary Medical History: Denies: Hx Asthma, Hx Bronchitis, Hx COPD, Hx Pneumonia Neurological Medical History: Reports: Hx Migraine. Denies: Hx Cerebrovascular Accident, Hx Seizures Renal/ Medical History: Denies: Hx Peritoneal Dialysis Musculoskeletal Medical History: Denies Hx Arthritis Infectious Medical History: Denies: Hx MRSA Past Surgical History: Reports: Hx Cholecystectomy. Denies: Hx Hysterectomy, Hx Pacemaker - Immunizations Hx Diphtheria, Pertussis, Tetanus Vaccination: Yes Review of Systems - Review of Systems Constitutional: No symptoms reported EENT: No symptoms reported Cardiovascular: No symptoms reported Respiratory: No symptoms reported Gastrointestinal: Abdominal pain, Diarrhea, Nausea, Vomiting Genitourinary: No symptoms reported Female Genitourinary: No symptoms reported Musculoskeletal: No symptoms reported Skin: No symptoms reported Neurological/Psychological: No symptoms reported -: Yes All other systems reviewed and negative Physical Exam - Vital signs Vitals: Temp Pulse Resp BP Pulse Ox 98.4 F 79 16 114/71 100 05/04/18 06:20 05/04/18 06:20 05/04/18 06:20 05/04/18 06:20 05/04/18 06:20 - Notes Notes: PHYSICAL EXAMINATION: GENERAL: Well-appearing, well-nourished and in no acute distress. HEAD: Atraumatic, normocephalic. EYES: Pupils equal round and reactive to light, extraocular movements intact, conjunctiva are normal. ENT: Nares patent, oropharynx clear without exudates. Moist mucous membranes. NECK: Normal range of motion, supple without lymphadenopathy LUNGS: Breath sounds clear to auscultation bilaterally and equal. No wheezes rales or rhonchi. HEART: Regular rate and rhythm without murmurs ABDOMEN: Soft. Nontender. Nondistended. Normal active bowel sounds. Female : deferred Musculoskeletal: Normal range of motion, no pitting or edema. No cyanosis. NEUROLOGICAL: Cranial nerves grossly intact. Normal speech, normal gait. Normal sensory, motor exams PSYCH: Normal mood, normal affect. SKIN: Warm, Dry, normal turgor, no rashes or lesions noted. Course - Re-evaluation Re-evalutation: EKG: Ventricular rate 78, WV interval 156, castration 84, QTc 401, normal sinus rhythm. No ischemic changes. Repeat EKG: Ventricular rate 67, WV interval 148, castration 86, QTc 410, sinus rhythm. No ischemic changes. 05/04/18 11:22 05/04/18 12:33 Labs and imaging obtained. Troponin is negative x2. D-dimer came back elevated and a CTA of the chest was done. No PE seen. Patient is asymptomatic now in the room. Patient instructed to follow-up with her primary care physician this week, to take [id number] medication as needed for symptom relief, and to return to emergency department for worsening symptoms. Patient is agreeable with plan of care. - Vital Signs Vital signs: Temp Pulse Resp BP Pulse Ox 98.7 F 74 18 104/66 100 05/04/18 12:30 05/04/18 08:06 05/04/18 12:01 05/04/18 12:00 05/04/18 12:01 - Laboratory Result Diagrams: 05/04/18 07:30 05/04/18 07:30 Laboratory results interpreted by me: 05/04/18 05/04/18 05/04/18 07:30 07:30 07:30 WBC 3.9 L RBC 3.66 L Hgb 10.2 L Hct 30.6 L RDW 16.6 H D-Dimer 0.69 H Alkaline Phosphatase 32 L Urine Protein Urine Urobilinogen 05/04/18 07:55 WBC RBC Hgb Hct RDW D-Dimer Alkaline Phosphatase Urine Protein 30 H Urine Urobilinogen 2.0 H Discharge - Discharge Clinical Impression: Shortness of breath Chest pain Qualifiers: Chest pain type: unspecified Qualified Code(s): R07.9 - Chest pain, unspecified Condition: Good Disposition: HOME, SELF-CARE Instructions: Chest Pain of Unclear Cause ([facility]), Dyspnea, Nonspecific ([facility]) Referrals: GWEN DELGADO MD [Primary Care Provider] - Follow up as needed SANDRA SHAH MD [ACTIVE STAFF] - Follow up as needed
[2018-05-04 07:44] LABS: ABSOLUTE EOSINOPHILS # (AUTO) 0.1 10^3/uL (0.0-0.6); ABSOLUTE LYMPHOCYTES (AUTO) 1.2 10^3/uL (0.5-4.7); ABSOLUTE MONOCYTES (AUTO) 0.4 10^3/uL (0.1-1.4); ABSOLUTE NEUT (AUTO) 2.2 10^3/uL (1.7-8.2); BASOPHILS % (AUTO) 0.4 % (0-2); EOSINOPHILS % (AUTO) 2.1 % (0-6); HEMATOCRIT 30.6 % (36.0-47.0); HEMOGLOBIN 10.2 g/dL (12.0-15.5); LYMPHOCYTES % (AUTO) 31.9 % (13-45); MEAN CORPUSCULAR HEMOGLOBIN 27.8 pg (27.0-33.4); MEAN CORPUSCULAR HGB CONC 33.3 g/dL (32.0-36.0); MEAN CORPUSCULAR VOLUME 84 fl (80-97); MONOCYTES % (AUTO) 9.5 % (3-13); PLATELET COUNT 266 10^3/uL (150-450); RED BLOOD COUNT 3.66 10^6/uL (3.72-5.28); RED CELL DISTRIBUTION WIDTH 16.6 % (11.5-14.0); SEGMENTED NEUTROPHILS % (AUTO) 56.1 % (42-78); TOTAL CELLS COUNTED % (AUTO) 100 %; WHITE BLOOD COUNT 3.9 10^3/uL (4.0-10.5)
[2018-05-04 07:57] LABS: ALANINE AMINOTRANSFERASE 24 U/L (9-52); ALBUMIN 3.9 g/dL (3.5-5.0); ALKALINE PHOSPHATASE 32 U/L (38-126); ANION GAP 5 (5-19); ASPARTATE AMINO TRANSFERASE 27 U/L (14-36); BILIRUBIN,DIRECT 0.1 mg/dL (0.0-0.4); BILIRUBIN,TOTAL 0.4 mg/dL (0.2-1.3); BLOOD UREA NITROGEN 11 mg/dL (7-20); CALCIUM 9.2 mg/dL (8.4-10.2); CARBON DIOXIDE 28 mmol/L (22-30); CHLORIDE 107 mmol/L (98-107); GLUCOSE 88 mg/dL (75-110); POTASSIUM 3.8 mmol/L (3.6-5.0); SODIUM 140.2 mmol/L (137-145); TOTAL PROTEIN 7.2 g/dL (6.3-8.2)
--- NOTE | 2018-05-04 07:59 | RADIOLOGY REPORT (SQ) ---
EXAM DESCRIPTION: XR CHEST 2 VIEWS COMPLETED DATE/TME: 05/04/2018 07:04 CLINICAL HISTORY: 27 years Female, chest pain COMPARISON: None. FINDINGS: Increased lung volume, clear parenchyma, normal cardiac silhouette, and intact bony thorax. IMPRESSION: No acute cardiopulmonary findings.
[2018-05-04 08:13] LABS: APPEARANCE,URINE CLEAR; BILIRUBIN,URINE NEGATIVE (NEGATIVE); COLOR,URINE YELLOW; GLUCOSE, URINE NEGATIVE (NEGATIVE); KETONES,URINE NEGATIVE (NEGATIVE); LEUKOCYTE ESTERASE,URINE NEGATIVE (NEGATIVE); NITRITE,URINE NEGATIVE (NEGATIVE); PROTEIN,URINE 30 mg/dL (NEGATIVE)
[2018-05-04 08:18] LABS: URINE SPECIFIC GRAVITY 1.025
[2018-05-04 08:33] LABS: URINE AMPHETAMINES SCREEN NEGATIVE; URINE BARBITURATES SCREEN NEGATIVE; URINE BENZODIAZEPINES SCREEN NEGATIVE; URINE COCAINE SCREEN NEGATIVE; URINE MARIJUANA (THC) SCREEN NEGATIVE; URINE METHADONE SCREEN NEGATIVE; URINE PHENCYCLIDINE SCREEN NEGATIVE
[2018-05-04] MEDS ORDERED: ACETAMINOPHEN 325 MG TABLET PO ONE (09:05)
--- NOTE | 2018-05-04 10:13 | EKG REPORT ---
SEVERITY:- NORMAL ECG - SINUS RHYTHM : Confirmed by: Nadia Esposito MD 04-May-2018 10:12:13
--- NOTE | 2018-05-04 10:40 | RADIOLOGY REPORT (SQ) ---
EXAM DESCRIPTION: CTA CHEST COMPLETED DATE/TIME: 05/04/2018 10:06 am REASON FOR STUDY: shortness of breath, elevated d dimer COMPARISON: Recent radiographs TECHNIQUE: CT scan of the chest performed using helical scanning technique with dynamic intravenous contrast injection. Images reviewed with lung, soft tissue and bone windows. Reconstructed coronal and sagittal MPR images reviewed. Additional 3 dimensional post-processing performed to develop Maximal Intensity Projection images (ID P). All images stored on PACS. All CT scanners at this facility use dose modulation, iterative reconstruction, and/or weight based d osing when appropriate to reduce radiation dose to as low as reasonably achievable (ALARA). [facility]: Dose Right [facility]: CareDose [facility]: Dose Right [facility]: Teradose 4D [facility]: [employer] CONTRAST TYPE AND DOSE: contrast/concentration: Isovue 350.00 mg/ml; Total Contrast Delivered: 62.0 ml; Total Saline Delivered: 79.6 ml Contrast bolus optimized for the pulmonary arteries. Not diagnostic for the aorta. RENAL FUNCTION: None required. The patient is less than 50 years old. RADIATION DOSE: CT Rad equipment meets quality standard of care and radiation dose reduction techniq ues were employed. CTDIvol: 13.2 - 14.3 mGy. DLP: 512 mGy-cm. . LIMITATIONS: None. FINDINGS: LUNGS AND PLEURA: No masses, infiltrates, or pneumothorax. No pleural effusions or pleura l calcifications. AORTA AND GREAT VESSELS: Aorta and great vessels not well assessed due to phase of contrast. No gee s aneurysm. HEART: No pericardial effusion. No significant coronary artery calcifications. PULMONARY ARTERIES: No emboli visualized in the main pulmonary arteries or the segmental branches. HILAR AND MEDIASTINAL STRUCTURES: No identified masses or abnormal nodes. HARDWARE: None in the chest. UPPER ABDOMEN: No significant findings. Limited exam. THYROID AND OTHER SOFT TISSUES: No masses. No adenopathy. BONES: No acute or significant finding. 3D MIPS: Confirm above findings. OTHER: No other significant finding. IMPRESSION: NORMAL CTA OF THE CHEST. NO PULMONARY EMBOLI. COMMENT: Quality ID # [id number]: Final reports with documentation of one or more dose reduction techniques (e.g., Automated exposure control, adjustment of the mA and/or kV according to patient size, use of iterative reconstruction technique) TECHNICAL DOCUMENTATION: JOB ID: [id number]- All Rights Reserved Reading location - IP/workstation name: [email or web address]
[2018-05-04 12:29] VITALS: BP 104/66
--- NOTE | 2018-05-04 18:16 | EKG REPORT ---
SEVERITY:- NORMAL ECG - SINUS RHYTHM : Confirmed by: Nadia Esposito MD 04-May-2018 18:15:45
== END 2018-05-04 12:49 | disposition home or self-care (01) ==
LOC: ER 06:06
DX: R06.02 Shortness of breath (principal); R07.9 Chest pain, unspecified; Z90.49 Acquired absence of other specified parts of digestive tract
CPT/HCPCS: 36415; 71046; 71275; 80053; 80307; 81001; 81025; 84484; 85025; 85379; 93005; 93010; 99285

== ENCOUNTER 2018-07-16 18:51 | Emergency (ER) | payer SELFPAY ==
--- NOTE | 2018-07-16 19:24 | ER Document Report ---
ED General - General Chief Complaint: Cough Stated Complaint: COUGH Time Seen by Provider: 07/16/18 19:12 Notes: Patient is a 27-year-old female who presents to the emergency department with a chief complaint of a cough, mild headache, and rhinorrhea. Symptoms started yesterday. She describes her cough is a dry cough. Her headache is very mild and she thinks she has a headache when she has sinus pressure. She denies any fever, but she was diagnosed with the flu last year and did not have a fever. She is refusing any medication for the pain. She denies any nausea, vomiting, diarrhea. She is curious if she has the flu. Her past medical history includes hernia, GERD, and allergies. She does admit to some occasional sinus pressure, but does not complain of any at this time. She denies ear pain. TRAVEL OUTSIDE OF THE [place] IN LAST 30 DAYS: No - Related Data Allergies/Adverse Reactions: No Known Allergies Allergy (Verified 07/16/18 18:51) Past Medical History - Social History Smoking Status: Never Smoker Frequency of alcohol use: None Drug Abuse: None Lives with: Alone Family History: CAD, Hypertension, Other - Patient states her dad does not have any medical problems. Her mom at age 42. She states she had lung cancer, scleroderma, interstitial lung disease and for the last year of her life is on hemodialysis.Patient has 2 siblings they are healthy - Past Medical History Cardiac Medical History: Denies: Hx Coronary Artery Disease, Hx Heart Attack, Hx Hypertension Pulmonary Medical History: Denies: Hx Asthma, Hx Bronchitis, Hx COPD, Hx Pneumonia Neurological Medical History: Reports: Hx Migraine. Denies: Hx Cerebrovascular Accident, Hx Seizures Renal/ Medical History: Denies: Hx Peritoneal Dialysis Musculoskeletal Medical History: Denies Hx Arthritis Infectious Medical History: Denies: Hx MRSA Past Surgical History: Reports: Hx Cholecystectomy. Denies: Hx Hysterectomy, Hx Pacemaker - Immunizations Hx Diphtheria, Pertussis, Tetanus Vaccination: Yes Review of Systems - Review of Systems Notes: REVIEW OF SYSTEMS: CONSTITUTIONAL : Denies recent illness. Denies recent unintentional weight loss. Denies fever, chills, or sweats. EENT: See HPI CARDIOVASCULAR: Denies chest pain. RESPIRATORY: See HPI GASTROINTESTINAL: Denies nausea, vomiting, and diarrhea. Denies abdominal pain. Denies constipation. GENITOURINARY: Denies difficulty urinating, burning, blood in urine, urgency or frequency. MUSCULOSKELETAL: Denies neck and back pain. Denies joint pain or swelling. SKIN: Denies rash, itchiness, or lesions HEMATOLOGIC : Denies easy bruising or bleeding. LYMPHATIC: Denies swollen, painful, enlarged glands. NEUROLOGICAL: Denies no numbness or tingling denies weakness. Denies headache. Denies altered mental status. Denies alteration in speech. PSYCHIATRIC: Denies stress, anxiety, alteration in sleep patterns, or depression. All other systems reviewed and negative. Physical Exam - Vital signs Vitals: Temp Pulse Resp BP Pulse Ox 97.9 F 89 18 127/69 H 100 07/16/18 19:02 07/16/18 19:02 07/16/18 19:02 07/16/18 19:02 07/16/18 19:02 - Notes Notes: PHYSICAL EXAMINATION: GENERAL: Appears well, healthy, well-nourished, no acute distress. HEAD: Normocephalic, atraumatic. EYES: PERRL, conjunctiva normal, all extraocular movements intact, sclera nonicteric ENT: Moist mucous membranes. Rhinorrhea noted. Non-erythematous tympanic membrane without bulging. NECK: Supple, no noticeable swelling, redness, rash. Normal range of motion. LUNGS: Equal breath sounds bilaterally and clear to auscultation. No wheezes rales or rhonchi. CARDIOVASCULAR: S1-S2, regular rate, regular rhythm. Radial pulses 2+, normal. ABDOMEN: Normoactive bowel sounds. Soft, nontender, no guarding, no rebound tenderness, and no masses palpated. EXTREMITIES: Normal strength and range of motion, no pitting or edema. No cyanosis. NEUROLOGICAL: Moves all extremities upon command. Strength 5/5 in all extremities. PSYCH: Normal mood, normal affect. SKIN: Warm, dry. No rash, lesions, ulcerations noted. Normal skin turgor. Course - Re-evaluation Re-evalutation: Differential diagnosis includes upper respiratory infection, influenza, acute otitis media, or other ENT etiologies. 07/16/18 19:24 Influenza screen will be sent due to patient having a previous positive flu result last year. She has not received her flu vaccine. 07/16/18 19:55 Her influenza screen is negative. She states her insurance does not effective until July 26. I would like to start her on Singulair for his symptoms, but since her insurance is not active, I have advised her to either see how much similar costs or wait until July to have the prescription filled. Since she has taken Zyrtec before, I will give her a prescription for Zyrtec if she can not afford Singulair. I do not suspect patient has pneumonia, epiglottitis, or any life-threatening etiology at this time. - Vital Signs Vital signs: Temp Pulse Resp BP Pulse Ox 98.3 F 74 16 118/70 100 07/16/18 20:21 07/16/18 20:21 07/16/18 20:21 07/16/18 20:21 07/16/18 20:21 Discharge - Discharge Clinical Impression: Cough, Rhinorrhea Headache Qualifiers: Headache type: unspecified Headache chronicity pattern: unspecified pattern Intractability: not intractable Qualified Code(s): R51 - Headache Condition: Stable Disposition: HOME, SELF-CARE Additional Instructions: You were seen today in the emergency department for a cough, headache, and runny nose. Your flu test was negative. Your symptoms may be due to an upper respiratory infection. You can take Motrin 600 mg and Tylenol 1000 mg every 6 hours as needed for your headache. You have been given a prescription for Singulair and Zyrtec. As we discussed, you can have the singular filled in July when your insurance comes into effect. You may also use Zyrtec prescription or buy it [id number]. These take as directed for your allergies and runny nose. If you develop a fever greater than 100.4 F, have worsening symptoms, or have any concerns that are worrisome to you, please return to the emergency department. Prescriptions: Montelukast Sodium [Singulair 10 mg Tablet] 10 mg PO QHS #30 tablet Cetirizine HCl [24Hour Allergy] 10 mg PO DAILY #30 tablet Referrals: GWEN DELGADO MD [Primary Care Provider] - Follow up as needed
[2018-07-16 19:49] LABS: A TYPE INFLUENZA AG NEGATIVE (NEGATIVE); B INFLUENZA AG NEGATIVE (NEGATIVE)
[2018-07-16 20:35] VITALS: BP 118/70
== END 2018-07-16 20:22 | disposition home or self-care (01) ==
LOC: ER 18:51
DX: R05 Cough (principal); J34.89 Other specified disorders of nose and nasal sinuses; R51 Headache; Z90.49 Acquired absence of other specified parts of digestive tract
CPT/HCPCS: 87804; 99283

== ENCOUNTER 2018-11-16 13:11 | Emergency (ER) | payer MEDICAID, OTHER ==
[2018-11-16] MEDS ORDERED: LIDOCAINE 5% (700 MG) TRANSDERMAL ADH..PATCH TP ONE (14:29)
[2018-11-16] MEDS ORDERED: KETOROLAC TROMETHAMINE 60 MG/2 ML SDV IM ONE (14:29)
--- NOTE | 2018-11-16 15:09 | ER Document Report ---
HPI - HPI Patient complains to provider of: Left back pain Time Seen by Provider: 11/16/18 14:02 Pain Level: 4 Context: Patient is a otherwise healthy 28-year-old female presents to the emergency department for left lower back pain. Patient states twice today she was lifting and moving a ladder at work. States she twisted weird and has pain in her left lower side. Patient's denying any urinary retention, loss of bowel or bladder. Patient is denying that the ladder actually fell on her. Patient states she twisted to get out of the way prior to it making contact with her body. Past medical history: Indigestion Medications: Prilosec Allergies: None - REPRODUCTIVE Reproductive: DENIES: : Past Medical History - General Information source: Patient - Social History Smoking Status: Never Smoker Family History: CAD, Hypertension, Other - Patient states her dad does not have any medical problems. Her mom at age 42. She states she had lung cancer, scleroderma, interstitial lung disease and for the last year of her life is on hemodialysis.Patient has 2 siblings they are healthy Patient has suicidal ideation: No Patient has homicidal ideation: No - Past Medical History Cardiac Medical History: Denies: Hx Coronary Artery Disease, Hx Heart Attack, Hx Hypertension Pulmonary Medical History: Denies: Hx Asthma, Hx Bronchitis, Hx COPD, Hx Pneumonia Neurological Medical History: Reports: Hx Migraine. Denies: Hx Cerebrovascular Accident, Hx Seizures Renal/ Medical History: Denies: Hx Peritoneal Dialysis Musculoskeletal Medical History: Denies Hx Arthritis Infectious Medical History: Denies: Hx MRSA Past Surgical History: Reports: Hx Cholecystectomy. Denies: Hx Hysterectomy, Hx Pacemaker - Immunizations Hx Diphtheria, Pertussis, Tetanus Vaccination: Yes Vertical Provider Document - CONSTITUTIONAL Agree With Documented VS: Yes Notes: GENERAL: Alert, interacts well. No acute distress. HEAD: Normocephalic, atraumatic. EYES: Pupils equal, round, and reactive to light. Extraocular movements intact. ENT: Oral mucosa moist, tongue midline. NECK: Full range of motion. Supple. Trachea midline. LUNGS: Clear to auscultation bilaterally, no wheezes, rales, or rhonchi. No respiratory distress. HEART: Regular rate and rhythm. No murmur ABDOMEN: Soft, non-tender. Non-distended. Bowel sounds present in all 4 quadrants. EXTREMITIES: Moves all 4 extremities spontaneously. No edema, normal radial and dorsalis pedis pulses bilaterally. No cyanosis. 5 out of 5 strength all 4 extremities BACK: no cervical, thoracic, lumbar midline tenderness. No saddle anesthesia, normal distal neurovascular exam. Lumbar paraspinal pain left side. No obvious signs of trauma noted NEUROLOGICAL: Alert and oriented x3. Normal speech. cranial nerves II through XII grossly intact PSYCH: Normal affect, normal mood. SKIN: Warm, dry, normal turgor. No rashes or lesions noted. - INFECTION CONTROL TRAVEL OUTSIDE OF THE [place] IN LAST 30 DAYS: No Course - Re-evaluation Re-evalutation: 11/16/18 15:07 Patient does not have paraspinal tenderness cervical all the way down to sacral. X-rays not warranted at this time. Discussed use of anti-inflammatories, muscle relaxers, stretches, heat, follow-up with primary care provider. Patient stable for discharge. - Vital Signs Vital signs: Temp Pulse Resp BP Pulse Ox 98.5 F 93 16 109/67 100 11/16/18 13:15 11/16/18 13:15 11/16/18 13:15 11/16/18 13:15 11/16/18 13:15 Discharge - Discharge Clinical Impression: Lumbar back pain Condition: Stable Disposition: HOME, SELF-CARE Instructions: Warm Packs ([facility]), Low Back Pain ([facility]), Muscle Strain ([facility]) Additional Instructions: As we discussed you have been seen and treated in the emergency department for potential injury to her left lower back. Please make sure you take [id number] anti-inflammatories continue taking muscle relaxers as needed. Please no muscle relaxers may make you tired. Take it with caution. Please follow-up with your primary care provider in the next 24 to 48 hours, return to the emergency room should you have any other concerning symptoms. Stretching Exercises for the Back The physician has recommended that you begin stretching exercises for your back. These are often used even while the back is painful. However, you should notify the physician if the activities seem to increase your pain. PELVIC TILT: Lie flat on your back with knees bent. Tighten your stomach and buttock muscles so it flattens your lower back against the floor. Hold 10 seconds. Repeat 10 times, twice daily. KNEE RAISE: Lying on the back with knees bent, raise one knee to your chest, then the other. Hold both knees against the chest 10 seconds, then lower one knee at a time. Repeat 10 times, twice daily. PARTIAL TRUNK RAISE: Lie face down, arms at your sides. Keeping your waist on the floor, use your arms raise your chest up. Support yourself on your elbows for 30 seconds. Repeat twice daily, increasing the time to two minutes as you recover. Prescriptions: Cyclobenzaprine HCl [Flexeril 5 mg Tablet] 5 mg PO TID #15 tablet Referrals: GWEN DELGADO MD [Primary Care Provider] - Follow up as needed
[2018-11-16 15:26] VITALS: BP 103/65
== END 2018-11-16 15:24 | disposition home or self-care (01) ==
LOC: ER 13:11
DX: M54.5 Low back pain (principal); X50.0XXA Overexertion from strenuous movement or load, initial encounter; Y99.0 Civilian activity done for income or pay; Z90.49 Acquired absence of other specified parts of digestive tract
CPT/HCPCS: 99283; 96372; 81025; J1885

== ENCOUNTER 2018-12-19 14:29 | Emergency (ER) | payer BC, OTHER ==
--- NOTE | 2018-12-19 15:14 | ER Document Report ---
ED Medical Screen (RME) - General Chief Complaint: Breast Problem Stated Complaint: POSSIBLE ABSCESS Time Seen by Provider: 12/19/18 14:58 Primary Care Provider: GWEN DELGADO MD [Primary Care Provider] - Follow up as needed TRAVEL OUTSIDE OF THE [place] IN LAST 30 DAYS: No - HPI Notes: 12/19/18 15:09 Patient is a 28-year-old female with history of asthma and acid reflux who pre sents complaining of lump to her right superior lateral breast area that does have some discomfort associated but no sharp pain. Pain does not radiate. She has not noticed any redness. She is eating and drinking without difficulty. No other concerns or complaints. Denies BOWEN, fever, neck pain, URI, CP, SOB, Abd pain, or rash. I have treated and performed a rapid initial assessment of this patient. A comprehensive ED assessment and evaluation of the patient, analysis of test results and completion of medical decision making process will be conducted by additional ED providers. I did review with Dr. Ramos. ?Superficial venous thrombi embolism. Will have her eval'd by next provider PHYSICAL EXAMINATION: GENERAL: Well-appearing, well-nourished and in no acute distress. A&Ox4. Answ ers questions appropriately. Rt breast (Karin RN in room): + mobile minimally tender lump superior lateral breast with what feels like a palpable cord. No erythema, fluctuance, or streaks. - Related Data Allergies/Adverse Reactions: No Known Allergies Allergy (Verified 12/19/18 14:30) Past Medical History - Social History Chew tobacco use (# tins/day): No Frequency of alcohol use: None Drug Abuse: None - Past Medical History Cardiac Medical History: Denies: Hx Coronary Artery Disease, Hx Heart Attack, Hx Hypertension Pulmonary Medical History: Denies: Hx Asthma, Hx Bronchitis, Hx COPD, Hx Pneumonia Neurological Medical History: Reports: Hx Migraine. Denies: Hx Cerebrovascular Accident, Hx Seizures Renal/ Medical History: Denies: Hx Peritoneal Dialysis GI Medical History: Reports: Hx Gastroesophageal Reflux Disease Musculoskeltal Medical History: Denies Hx Arthritis Infectious Medical History: Denies: Hx MRSA Past Surgical History: Reports: Hx Cholecystectomy. Denies: Hx Hysterectomy, Hx Pacemaker - Immunizations Hx Diphtheria, Pertussis, Tetanus Vaccination: Yes History of Influenza Vaccine for 04/2017 - 09/2017 Season: No Physical Exam - Vital signs Vitals: Temp Pulse Resp BP Pulse Ox 98.5 F 89 16 112/60 100 12/19/18 14:45 12/19/18 14:45 12/19/18 14:45 12/19/18 14:45 12/19/18 14:45 Course - Vital Signs Vital signs: Temp Pulse Resp BP Pulse Ox 98.5 F 89 16 112/60 100 12/19/18 14:45 12/19/18 14:45 12/19/18 14:45 12/19/18 14:45 12/19/18 14:45 Doctor's Discharge - Discharge Referrals: GWEN DELGADO MD [Primary Care Provider] - Follow up as needed
--- NOTE | 2018-12-19 15:25 | ER Document Report ---
ED Breast Problem - General Chief Complaint: Breast Problem Stated Complaint: POSSIBLE ABSCESS Time Seen by Provider: 12/19/18 14:58 Primary Care Provider: GWEN DELGADO MD [ACTIVE STAFF] - Follow up as needed Mode of Arrival: Ambulatory Information source: Patient TRAVEL OUTSIDE OF THE [place] IN LAST 30 DAYS: No - HPI Patient complains to provider of: Lump, Tenderness Notes: Patient is here with complaints of mass and cord-like structure in the right upper breast axilla. States she noticed this 2 days ago. She denies any injury to the area. She denies any nipple discharge. She denies any fever or redness. No abdominal pain. No chest pain or shortness of breath. No numbness, tingling, weakness. No rash. No headache or blurred vision. No history of abscess. No fever. No other complaints. - Related Data Allergies/Adverse Reactions: No Known Allergies Allergy (Verified 12/19/18 14:30) Past Medical History - Social History Smoking Status: Unknown if Ever Smoked Chew tobacco use (# tins/day): No Frequency of alcohol use: None Drug Abuse: None Family History: CAD, Hypertension, Other - Patient states her dad does not have any medical problems. Her mom at age 42. She states she had lung cancer, scleroderma, interstitial lung disease and for the last year of her life is on hemodialysis.Patient has 2 siblings they are healthy Patient has suicidal ideation: No Patient has homicidal ideation: No - Past Medical History Cardiac Medical History: Denies: Hx Coronary Artery Disease, Hx Heart Attack, Hx Hypertension Pulmonary Medical History: Denies: Hx Asthma, Hx Bronchitis, Hx COPD, Hx Pneumonia Neurological Medical History: Reports: Hx Migraine. Denies: Hx Cerebrovascular Accident, Hx Seizures Renal/ Medical History: Denies: Hx Peritoneal Dialysis GI Medical History: Reports: Hx Gastroesophageal Reflux Disease Musculoskeletal Medical History: Denies Hx Arthritis Infectious Medical History: Denies: Hx MRSA Past Surgical History: Reports: Hx Cholecystectomy. Denies: Hx Hysterectomy, Hx Pacemaker - Immunizations Hx Diphtheria, Pertussis, Tetanus Vaccination: Yes Review of Systems - Review of Systems -: Yes All other systems reviewed and negative Physical Exam - Vital signs Vitals: Temp Pulse Resp BP Pulse Ox 98.5 F 89 16 112/60 100 12/19/18 14:45 12/19/18 14:45 12/19/18 14:45 12/19/18 14:45 12/19/18 14:45 - Notes Notes: GENERAL: alert, cooperative, nontoxic, no distress. HEAD: normocephalic, atraumatic EYES: conjunctiva pink without discharge, no external redness or swelling. EARS: no external swelling, no external redness NOSE: atraumatic, no external swelling MOUTH/THROAT: mucous membranes moist and pink, posterior pharynx without erythema, swelling, exudate. No trismus or drooling. NECK: soft, supple, full range of motion, no meningismus. CHEST: no distress, lungs clear and equal throughout. No wheezing, rales, rhonchi. CARDIAC: regular rate and rhythm, no murmur, normal capillary refill, normal pulses. No peripheral edema noted. BREAST: Patient with small mass to the right lateral upper quadrant of the breast with a cordlike structure that tracks to the right axilla. Mild tenderness to palpation. No erythema. No fluctuance. ABDOMEN: Soft, nontender. BACK: full range of motion, no CVA tenderness. EXTREMITIES: full range of motion of all extremities. No redness, no swelling. NEURO: alert and oriented x 3, no focal deficits, full range of motion of all extremities. PYSCH: appropriate mood, affect. Patient is cooperative. SKIN: pink, warm, dry, no rash. Course - Re-evaluation Re-evalutation: 12/19/18 16:46 Patient is nontoxic-appearing with stable vitals. Patient here with complaints of a swollen area in her right breast. On exam she is noted to have a small masslike structure with a cordlike structure that heads towards the axilla. No redness, no fevers. No other specific breast masses identified on breast exam. Ultrasound shows a torturous cordlike structure in the area that we were palpable bleeding likely consistent with a superficial thrombophlebitis. Patient will be discharged home with Naprosyn and instructions to apply warm compresses to the area. I do feel that she should still follow-up with either the women[facility] center or her primary care doctor for mammogram and further evaluation. This point she has no arm swelling and no sign of DVT in the right upper extremity. There is no sign of abscess in this area. Patient instructed to follow-up as discussed, follow-up sooner for worsening pain, fever, redness, any further concerns. The patient's emergency department workup and current diagnosis were explained to the patient and or family. Follow-up instructions were provided. Medications if prescribed were discussed. Instructions for when to return to the emergency department including specific worrisome symptoms were discussed with the patient and/or family. The patient's emergency department workup and current diagnosis were explained to the patient and or family. Follow-up instructions were provided. Medications if prescribed were discussed. Instructions for when to return to the emergency department including specific worrisome symptoms were discussed with the patient and/or family. - Vital Signs Vital signs: Temp Pulse Resp BP Pulse Ox 98.5 F 89 16 112/60 100 12/19/18 14:45 12/19/18 14:45 12/19/18 14:45 12/19/18 14:45 12/19/18 14:45 - Diagnostic Test Radiology reviewed: Image reviewed, Reports reviewed - Ultrasound of the breast shows a torturous/cordlike structure consistent with superficial thrombophlebitis. Discharge - Discharge Clinical Impression: Superficial thrombophlebitis Qualifiers: Superficial thrombophlebitis-Involved body area: other site Qualified Code(s): I80.8 - Phlebitis and thrombophlebitis of other sites Condition: Stable Disposition: HOME, SELF-CARE Instructions: Superficial Phlebitis ([facility]), Breast Lumps ([facility]) Additional Instructions: Take medication as prescribed. Apply warm compresses to the sore area. Follow- up with your primary care doctor or the women's center at the next available appointment for further evaluation. Follow-up sooner for worsening pain, fever, redness, drainage, any further concerns. Prescriptions: Naproxen [Naprosyn] 500 mg PO BID #20 tablet Referrals: GWEN DELGADO MD [ACTIVE STAFF] - Follow up as needed [facility] [Provider Group] - Follow up as needed
--- NOTE | 2018-12-19 16:43 | RADIOLOGY REPORT (SQ) ---
EXAM DESCRIPTION: U/S BREAST UNILATERAL LIMITED COMPLETED DATE/TIME: 12/19/2018 4:20 pm REASON FOR STUDY: RIGHT UPPER BREAST MASS WITH PALPABLE CORD COMPARISON: None TECHNIQUE: Static and Realtime grayscale interrogation of focal area(s) of concern in the right familia st(s) acquired. Selected color doppler/spectral images saved to PACS. LIMITATIONS: None. FINDINGS: Targeted ultrasound examination of the upper outer right breast at approximately 11 o'cloc k face, near the axilla at the patient identified area of pain and tenderness, reveals a tortuous sup erficial elongated structure, likely a thrombosed superficial vein. IMPRESSION: Targeted ultrasound examination of the upper outer right breast at approximately 11 o'cl ock face, near the axilla at the patient identified area of pain and tenderness, reveals a tortuous s uperficial elongated structure, likely a thrombosed superficial vein. BIRAD: Deferred in the acute setting. RECOMMENDATION: RECOMMENDED FOLLOW-UP: Recommend complete mammographic and ultrasound evaluation on a nonemergent basis in 3 months to ensure resolution, or sooner if indicated by worsening clinical si gns and symptoms. COMMENT: The [employer] (ACR) has developed recommendations for screening MRI of the breasts in certain patient populations, to be used in conjunction with mammography. Breast MRI s urveillance may be appropriate for women with more than 20% lifetime risk of developing breast cancer as determined by genetic testing, significant family history of the disease, or history of mantle r adiation for Hodgkins Disease. ACR Practice Guidelines 2008. TECHNICAL DOCUMENTATION: FINDING NUMBER: (1) ASSESSMENT: (1) JOB ID: [id number] [employer]- All Rights Reserved Reading location - IP/workstation name: [email or web address]
[2018-12-19 17:00] VITALS: BP 111/61
== END 2018-12-19 17:04 | disposition home or self-care (01) ==
LOC: ER 14:29
DX: I80.9 Phlebitis and thrombophlebitis of unspecified site (principal); N63.10 Unspecified lump in the right breast, unspecified quadrant
CPT/HCPCS: 76642; 99283

== ENCOUNTER 2019-05-17 14:14 | Emergency (ER) | payer BC ==
[2019-05-17] MEDS ORDERED: MECLIZINE HCL 25 MG TABLET PO ONE (14:52)
[2019-05-17] MEDS ORDERED: ONDANSETRON 4 MG TAB.RAPDIS PO ONE (14:52)
--- NOTE | 2019-05-17 14:53 | ER Document Report ---
ED Medical Screen (RME) - General Chief Complaint: Congestion Stated Complaint: DIZZINESS Time Seen by Provider: 05/17/19 14:48 Primary Care Provider: TRENA MCDOWELL PA-C [Primary Care Provider] - Follow up as needed Mode of Arrival: Wheelchair Information source: Patient Notes: Patient presents complaining of cough congestion and shortness of breath for the past 2 days. Patient reports dizziness in which she feels as though she is going to pass out. Patient denies any fever or chest pain. I have greeted and performed a rapid initial assessment of this patient. A comprehensive ED assessment and evaluation of the patient, analysis of test results and completion of the medical decision making process will be conducted by additional ED providers. TRAVEL OUTSIDE OF THE [place] IN LAST 30 DAYS: No - Related Data Allergies/Adverse Reactions: No Known Allergies Allergy (Verified 05/17/19 14:47) Past Medical History - Social History Chew tobacco use (# tins/day): No Frequency of alcohol use: Occasional Drug Abuse: None - Past Medical History Cardiac Medical History: Denies: Hx Coronary Artery Disease, Hx Heart Attack, Hx Hypertension Pulmonary Medical History: Denies: Hx Asthma, Hx Bronchitis, Hx COPD, Hx Pneumonia Neurological Medical History: Reports: Hx Migraine. Denies: Hx Cerebrovascular Accident, Hx Seizures Renal/ Medical History: Denies: Hx Peritoneal Dialysis GI Medical History: Reports: Hx Gastroesophageal Reflux Disease Musculoskeltal Medical History: Denies Hx Arthritis Infectious Medical History: Denies: Hx MRSA Past Surgical History: Reports: Hx Cholecystectomy. Denies: Hx Hysterectomy, Hx Pacemaker - Immunizations Hx Diphtheria, Pertussis, Tetanus Vaccination: Yes Physical Exam - Vital signs Vitals: Temp Pulse Resp BP Pulse Ox 98.4 F 89 18 112/63 100 05/17/19 14:22 05/17/19 14:22 05/17/19 14:22 05/17/19 14:22 05/17/19 14:22 - Respiratory Respiratory status: No respiratory distress Chest status: Nontender Breath sounds: Normal Chest palpation: Normal Course - Vital Signs Vital signs: Temp Pulse Resp BP Pulse Ox 98.4 F 89 18 112/63 100 05/17/19 14:22 05/17/19 14:22 05/17/19 14:22 05/17/19 14:22 05/17/19 14:22 Doctor's Discharge - Discharge Referrals: TRENA MCDOWELL PA-C [Primary Care Provider] - Follow up as needed
--- NOTE | 2019-05-17 16:02 | RADIOLOGY REPORT (SQ) ---
EXAM DESCRIPTION: CHEST 2 VIEWS COMPLETED DATE/TIME: 05/17/2019 3:54 pm REASON FOR STUDY: cough, dizzy COMPARISON: 05/04/2018 EXAM PARAMETERS: NUMBER OF VIEWS: two views TECHNIQUE: Digital Frontal and Lateral radiographic views of the chest acquired. RADIATION DOSE: NA LIMITATIONS: none FINDINGS: LUNGS AND PLEURA: No opacities, masses or pneumothorax. No pleural effusion. MEDIASTINUM AND HILAR STRUCTURES: No masses or contour abnormalities. HEART AND VASCULAR STRUCTURES: Heart normal size. No evidence for failure. BONES: No acute findings. HARDWARE: None in the chest. OTHER: No other significant finding. IMPRESSION: NO ACUTE RADIOGRAPHIC FINDING IN THE CHEST. TECHNICAL DOCUMENTATION: JOB ID: [id number] [employer]- All Rights Reserved Reading location - IP/workstation name: [email or web address]
[2019-05-17 16:05] LABS: ABSOLUTE EOSINOPHILS # (AUTO) 0.1 10^3/uL (0.0-0.6); ABSOLUTE LYMPHOCYTES (AUTO) 0.9 10^3/uL (0.5-4.7); ABSOLUTE MONOCYTES (AUTO) 0.6 10^3/uL (0.1-1.4); ABSOLUTE NEUT (AUTO) 4.1 10^3/uL (1.7-8.2); BASOPHILS % (AUTO) 0.4 % (0-2); EOSINOPHILS % (AUTO) 1.9 % (0-6); HEMATOCRIT 36.6 % (36.0-47.0); HEMOGLOBIN 12.4 g/dL (12.0-15.5); LYMPHOCYTES % (AUTO) 16.3 % (13-45); MEAN CORPUSCULAR HEMOGLOBIN 30.9 pg (27.0-33.4); MEAN CORPUSCULAR HGB CONC 33.9 g/dL (32.0-36.0); MEAN CORPUSCULAR VOLUME 91 fl (80-97); MONOCYTES % (AUTO) 10.2 % (3-13); PLATELET COUNT 181 10^3/uL (150-450); RED BLOOD COUNT 4.02 10^6/uL (3.72-5.28); RED CELL DISTRIBUTION WIDTH 12.5 % (11.5-14.0); SEGMENTED NEUTROPHILS % (AUTO) 71.2 % (42-78); TOTAL CELLS COUNTED % (AUTO) 100 %; WHITE BLOOD COUNT 5.7 10^3/uL (4.0-10.5)
[2019-05-17 16:24] LABS: ALBUMIN 4.5 g/dL (3.5-5.0); ALKALINE PHOSPHATASE 53 U/L (38-126); ANION GAP 10 (5-19); ASPARTATE AMINO TRANSFERASE 25 U/L (14-36); BILIRUBIN,DIRECT 0.1 mg/dL (0.0-0.4); BILIRUBIN,TOTAL 0.3 mg/dL (0.2-1.3); BLOOD UREA NITROGEN 7 mg/dL (7-20); CALCIUM 9.8 mg/dL (8.4-10.2); CARBON DIOXIDE 28 mmol/L (22-30); CHLORIDE 103 mmol/L (98-107); GLUCOSE 92 mg/dL (75-110); POTASSIUM 4.2 mmol/L (3.6-5.0)
[2019-05-17] MEDS ORDERED: ONDANSETRON 4 MG TAB.RAPDIS ONE (17:40)
[2019-05-17] MEDS ORDERED: MECLIZINE HCL 25 MG TABLET ONE (17:40)
--- NOTE | 2019-05-17 19:02 | EKG REPORT ---
SEVERITY:- NORMAL ECG - SINUS RHYTHM : Confirmed by: Nadia Esposito MD 17-May-2019 19:01:00
[2019-05-17] MEDS ORDERED: GUAIFENESIN 600 MG TABLET.SA PO ONE (19:21)
[2019-05-17] MEDS ORDERED: PSEUDOEPHEDRINE HCL 30 MG TABLET PO ONE (19:21)
[2019-05-17 19:23] VITALS: BP 125/78
--- NOTE | 2019-05-17 19:26 | ER Document Report ---
ED Respiratory Problem - General Chief Complaint: Congestion Stated Complaint: DIZZINESS Time Seen by Provider: 05/17/19 14:48 Primary Care Provider: TRENA MCDOWELL PA-C [Primary Care Provider] - Follow up as needed Mode of Arrival: Wheelchair Information source: Patient Notes: 28-year-old female presented to ED for cough cold congestion shortness of breath for 2 days. She states she had some dizziness today when she got up. She does work at childcare. She does have a very inflamed swollen nasal mucosa. She denies any fevers or chest pain. Patient is alert oriented respirations regular nonlabored speaking in full sentences. TRAVEL OUTSIDE OF THE [place] IN LAST 30 DAYS: No - HPI Patient complains to provider of: Cough, Short of breath Onset: Other - 2 days Initiating Event: URI Quality of pain: Achy Severity: None Pain Level: Denies Cough: Nonproductive Sputum amount: Small Sputum color: Clear Sputum consistency: Thick Associated symptoms: Congestion, Cough, PND, Runny nose, Sinus pain/pressure, Other - Dizziness earlier but no dizziness now. denies: Fever Similar symptoms previously: Yes Recently seen / treated by doctor: No - Related Data Allergies/Adverse Reactions: No Known Allergies Allergy (Verified 05/17/19 14:47) Past Medical History - General Information source: Patient - Social History Smoking Status: Never Smoker Chew tobacco use (# tins/day): No Frequency of alcohol use: Rare Drug Abuse: None Occupation: childcare center administrator Lives with: Spouse/Significant other Family History: CAD, Hypertension, Other - Patient states her dad does not have any medical problems. Her mom at age 42. She states she had lung cancer, scleroderma, interstitial lung disease and for the last year of her life is on hemodialysis.Patient has 2 siblings they are healthy Patient has suicidal ideation: No Patient has homicidal ideation: No - Past Medical History Cardiac Medical History: Reports: None Pulmonary Medical History: Reports: None EENT Medical History: Reports: None Neurological Medical History: Reports: Hx Migraine Endocrine Medical History: Reports: None Renal/ Medical History: Reports: None Malignancy Medical History: Reports: None GI Medical History: Reports: Hx Gastroesophageal Reflux Disease Musculoskeletal Medical History: Reports None Skin Medical History: Reports None Psychiatric Medical History: Reports: None Traumatic Medical History: Reports: None Infectious Medical History: Reports: None Past Surgical History: Reports: Hx Cholecystectomy - Immunizations Hx Diphtheria, Pertussis, Tetanus Vaccination: Yes Review of Systems - Review of Systems Constitutional: Recent illness EENT: Nose congestion, Nose discharge, Sinus pressure, Sinus discharge Cardiovascular: Dizziness Respiratory: Cough, Sputum - Clear nasal drainage Gastrointestinal: No symptoms reported Genitourinary: No symptoms reported Female Genitourinary: No symptoms reported Musculoskeletal: No symptoms reported Skin: No symptoms reported Hematologic/Lymphatic: No symptoms reported Neurological/Psychological: No symptoms reported -: Yes All other systems reviewed and negative Physical Exam - Vital signs Vitals: Temp Pulse Resp BP Pulse Ox 98.4 F 89 18 112/63 100 05/17/19 14:22 05/17/19 14:22 05/17/19 14:22 05/17/19 14:22 05/17/19 14:22 Interpretation: Normal - General General appearance: Appears well, Alert - HEENT Head: Normocephalic, Atraumatic Eyes: Normal Pupils: PERRL Ears: Normal External canal: Normal Tympanic membrane: Normal Sinus: Frontal, Tenderness Nasal: Swelling, Clear rhinorrhea Mouth/Lips: Normal Mucous membranes: Normal Pharynx: Post nasal drainage. No: Erythema, Exudate, Tonsillar hypertrophy - Respiratory Respiratory status: No respiratory distress Chest status: Nontender Breath sounds: Nonproductive cough - States she spit stepped out of her mouth when she coughs clear thick. No: Productive cough, Rales, Rhonchi, Stridor, Wheezing Chest palpation: Normal - Cardiovascular Rhythm: Regular Heart sounds: Normal auscultation Murmur: No - Abdominal Inspection: Normal Distension: No distension Bowel sounds: Normal Tenderness: Nontender Organomegaly: No organomegaly - Back Back: Normal, Nontender - Extremities General upper extremity: Normal inspection, Nontender, Normal color, Normal ROM, Normal temperature General lower extremity: Normal inspection, Nontender, Normal color, Normal ROM, Normal temperature, Normal weight bearing. No: Blanquita's sign - Neurological Neuro grossly intact: Yes Cognition: Normal Orientation: AAOx4 Chandler Coma Scale Eye Opening: Spontaneous Chandler Coma Scale Verbal: Oriented Ab Coma Scale Motor: Obeys Commands Ab Coma Scale Total: 15 Speech: Normal Motor strength normal: LUE, RUE, LLE, RLE Sensory: Normal - Psychological Associated symptoms: Normal affect, Normal mood - Skin Skin Temperature: Warm Skin Moisture: Dry Skin Color: Normal Course - Re-evaluation Re-evalutation: 05/17/19 19:31 Patient is alert oriented respirations regular nonlabored symptoms consistent with a upper respiratory infection with postnasal drip. She does have some sinus pressure. Patient is able to walk with a even steady gait. She states she is not dizzy at this time. Patient was discharged home with instructions to follow-up with her primary care. She was treated with Sudafed and Mucinex and given instructions for these [id number] at home. After performing a Medical Screening Examination, I estimate there is LOW risk for ACUTE CORONARY SYNDROME, RESPIRATORY FAILURE, SEPSIS OR MENINGITIS, thus I consider the discharge disposition reasonable. I have reevaluated this patient multiple times and no significant life threatening changes are noted. The patient and I have discussed the diagnosis and risks, and we agree with discharging home with close follow-up. We also discussed returning to the Emergency Department immediately if new or worsening symptoms occur. We have discussed the symptoms which are most concerning (e.g., changing or worsening pain, trouble swallowing or breathing, neck stiffness, fever) that necessitate immediate return. - Vital Signs Vital signs: Temp Pulse Resp BP Pulse Ox 97.6 F 87 16 125/78 100 05/17/19 19:23 05/17/19 19:23 05/17/19 19:23 05/17/19 19:23 05/17/19 19:23 - Laboratory Result Diagrams: 05/17/19 15:40 05/17/19 15:40 - Diagnostic Test Radiology reviewed: Image reviewed, Reports reviewed Discharge - Discharge Clinical Impression: URI (upper respiratory infection) Qualifiers: URI type: unspecified viral URI Qualified Code(s): J06.9 - Acute upper respiratory infection, unspecified Condition: Stable Disposition: HOME, SELF-CARE Additional Instructions: UPPER RESPIRATORY ILLNESS: You have a viral infection of the respiratory passages -- a "cold." This common infection causes nasal congestion, drainage, and often sore throat and cough. It is highly contagious. The disease usually lasts about 10 to 14 days. There is no "cure" for the viral infection -- it must run its course. If there is a complication, such as bacterial infection in the nose, sinuses, middle ear, or bronchial tubes, antibiotics may be required. The antibiotics won't affect the virus. Drink plenty of fluids. A humidifier may help. An expectorant medication or decongestant may make you more comfortable. Use acetaminophen or ibuprofen for fever or aches. See the doctor if fever persists over two days, if there is any significant worsening of your symptoms, or if you simply fail to improve as expected. DECONGESTANT MEDICATION: A decongestant medicine has been suggested. Often this medicine is combined in the same tablet with an antihistamine or expectorant. This type of medicine is helpful in treating a bad cold or sinus condition, as well as in treatment of the nasal congestion of hay fever. It is not of much benefit for lung infections. Decongestant medicines are related to stimulants. They can cause an increase in blood pressure and heart rate. Persons with heart disease and high blood pressure should not take decongestants without discussing this with the physician. If you develop palpitations, chest pain, headache, or tremors, stop the medicine and consult your physician. COUGH-SUPPRESSANT & EXPECTORANT MEDICATION: You are to use a cough medication as needed for relief of symptoms. This medicine is a combination of an expectorant (to make the mucous thinner and more easily "coughed up") and a cough suppressant (to reduce the frequency of coughing). The cough-suppressant medicine is related to narcotics. You may experience mild nausea and sleepiness. Some patients who are very sensitive to narcotics may have stomach pain from this medicine. Taking the medicine with food reduces these side effects. Do not drive or work with machinery until you know how this medicine affects you. The expectorant should have no side effects. Iodine-containing expectorants (such as organidin) should not be taken by persons with active thyroid disease unless approved by your doctor. Call the doctor if you develop shortness of breath, hives, rash, itching, lightheadedness, or severe nausea and vomiting. USE OF ACETAMINOPHEN (Tylenol): Acetaminophen may be taken for pain relief or fever control. It's much safer than aspirin, offering a wider range of "safe" dosages. It is safe during . Some brand names are Tylenol, Panadol, Datril, Anacin 3, Tempra, and Liquiprin. Acetaminophen can be repeated every four hours. The following are maximum recommended dosages: >89 pounds or adults 650 mg to 900 mg Acetaminophen can be repeated every four hours. Maximum dose not to exceed 4000 mg a day. I have given you a dose of Mucinex. You can use Tylenol Motrin Mucinex Sudafed and nasal spray. You can also use Flonase nasal spray. You do have an upper respiratory infection. These are all [id number] medications. You do not need a prescription for any of these medications. Please follow-up with your primary care doctor tomorrow or the next day if you are not feeling better. FOLLOW-UP CARE: If you have been referred to a physician for follow-up care, call the physicians office for an appointment as you were instructed or within the next two days. If you experience worsening or a significant change in your symptoms, notify the physician immediately or return to the Emergency Department at any time for re-evaluation. Forms: Return to Work Referrals: TRENA MCDOWELL PA-C [Primary Care Provider] - Follow up as needed
== END 2019-05-17 19:32 | disposition home or self-care (01) ==
LOC: ER 14:14
DX: J06.9 Acute upper respiratory infection, unspecified (principal); B97.89 Other viral agents as the cause of diseases classified elsewhere; R05 Cough; R06.02 Shortness of breath; R42 Dizziness and giddiness; R09.82 Postnasal drip; R09.81 Nasal congestion; J34.89 Other specified disorders of nose and nasal sinuses
CPT/HCPCS: 93005; 36415; 84703; 85025; 80053; 84484; 71046; 93010; S0119; 99285

== ENCOUNTER 2019-08-18 22:11 | Emergency (ER) | payer BC ==
--- NOTE | 2019-08-18 23:04 | ER Document Report ---
ED Medical Screen (RME) - General Mode of Arrival: Ambulatory Information source: Patient TRAVEL OUTSIDE OF THE [place] IN LAST 30 DAYS: No <FELICIA WATKINS - Last Filed: 08/18/19 23:03> <YARIEL NAPIER IV - Last Filed: 08/19/19 02:38> - General Chief Complaint: Vaginal Bleeding Stated Complaint: VAGINAL BLEEDING Time Seen by Provider: 08/18/19 22:59 Primary Care Provider: TRENA MCDOWELL PA-C [Primary Care Provider] - Follow up as needed Notes: This 28-year-old female G3, P1 approximately 5 weeks with a last menstrual period of July 08 presents emergency department with vaginal spotting abdominal cramping and low back pain started yesterday. Denies pain with void. Denies fever vomiting diarrhea. I have greeted and performed a rapid initial assessment of this patient. A comprehensive ED assessment and evaluation of the patient, analysis of test results and completion of the medical decision making process will be conducted by additional ED providers. (FELICIA WATKINS) - Related Data Allergies/Adverse Reactions: No Known Allergies Allergy (Verified 05/17/19 14:47) Past Medical History - Past Medical History Cardiac Medical History: Denies: Hx Coronary Artery Disease, Hx Heart Attack, Hx Hypertension Pulmonary Medical History: Denies: Hx Asthma, Hx Bronchitis, Hx COPD, Hx Pneumonia Neurological Medical History: Reports: Hx Migraine. Denies: Hx Cerebrovascular Accident, Hx Seizures Renal/ Medical History: Denies: Hx Peritoneal Dialysis GI Medical History: Reports: Hx Gastroesophageal Reflux Disease Musculoskeltal Medical History: Denies Hx Arthritis Infectious Medical History: Denies: Hx MRSA Past Surgical History: Reports: Hx Cholecystectomy. Denies: Hx Hysterectomy, Hx Pacemaker - Immunizations Hx Diphtheria, Pertussis, Tetanus Vaccination: Yes <FELICIA WATKINS - Last Filed: 08/18/19 23:03> Physical Exam - Vital signs Vitals: Temp Pulse Resp BP Pulse Ox 98.0 F 105 H 20 119/64 99 08/18/19 22:21 08/18/19 22:21 08/18/19 22:21 08/18/19 22:21 08/18/19 22:21 Course - Laboratory Result Diagrams: 08/18/19 23:15 08/18/19 23:15 <YARIEL NAPIER IV - Last Filed: 08/19/19 02:38> - Vital Signs Vital signs: Temp Pulse Resp BP Pulse Ox 98.0 F 105 H 20 119/64 99 08/18/19 22:21 08/18/19 22:21 08/18/19 22:21 08/18/19 22:21 08/18/19 22:21 - Laboratory Laboratory results interpreted by me: 08/18/19 08/18/19 08/18/19 23:15 23:15 23:15 Hct 35.7 L Potassium 3.5 L Beta HCG, Quant 39819.00 H Urine Urobilinogen 2.0 H Ur Leukocyte Esterase SMALL H Doctor's Discharge <FELICIA WATKINS - Last Filed: 08/18/19 23:03> <YARIEL NAPIER IV - Last Filed: 08/19/19 02:38> - Discharge Referrals: TRENA MCDOWELL PA-C [Primary Care Provider] - Follow up as needed
[2019-08-18 23:31] LABS: ABSOLUTE EOSINOPHILS # (AUTO) 0.1 10^3/uL (0.0-0.6); ABSOLUTE MONOCYTES (AUTO) 0.7 10^3/uL (0.1-1.4); ABSOLUTE NEUT (AUTO) 4.9 10^3/uL (1.7-8.2); BASOPHILS % (AUTO) 0.4 % (0-2); EOSINOPHILS % (AUTO) 1.4 % (0-6); HEMATOCRIT 35.7 % (36.0-47.0); HEMOGLOBIN 12.1 g/dL (12.0-15.5); LYMPHOCYTES % (AUTO) 26.5 % (13-45); MEAN CORPUSCULAR HEMOGLOBIN 30.4 pg (27.0-33.4); MEAN CORPUSCULAR HGB CONC 34.1 g/dL (32.0-36.0); MEAN CORPUSCULAR VOLUME 89 fl (80-97); MONOCYTES % (AUTO) 8.6 % (3-13); PLATELET COUNT 186 10^3/uL (150-450); RED CELL DISTRIBUTION WIDTH 12.3 % (11.5-14.0); SEGMENTED NEUTROPHILS % (AUTO) 63.1 % (42-78); TOTAL CELLS COUNTED % (AUTO) 100 %; WHITE BLOOD COUNT 7.7 10^3/uL (4.0-10.5)
[2019-08-18 23:39] LABS: APPEARANCE,URINE CLEAR; BILIRUBIN,URINE NEGATIVE (NEGATIVE); COLOR,URINE YELLOW; GLUCOSE, URINE NEGATIVE (NEGATIVE); KETONES,URINE NEGATIVE (NEGATIVE); LEUKOCYTE ESTERASE,URINE SMALL (NEGATIVE); NITRITE,URINE NEGATIVE (NEGATIVE); PROTEIN,URINE NEGATIVE (NEGATIVE); URINE SPECIFIC GRAVITY 1.016
[2019-08-19 00:33] LABS: ALBUMIN 4.5 g/dL (3.5-5.0); ALKALINE PHOSPHATASE 44 U/L (38-126); ANION GAP 11 (5-19); ASPARTATE AMINO TRANSFERASE 25 U/L (14-36); BILIRUBIN,DIRECT 0.2 mg/dL (0.0-0.4); BILIRUBIN,TOTAL 0.3 mg/dL (0.2-1.3); BLOOD UREA NITROGEN 13 mg/dL (7-20); CALCIUM 9.8 mg/dL (8.4-10.2); CARBON DIOXIDE 27 mmol/L (22-30); CHLORIDE 101 mmol/L (98-107); GLUCOSE 89 mg/dL (75-110); POTASSIUM 3.5 mmol/L (3.6-5.0); TOTAL PROTEIN 8.2 g/dL (6.3-8.2)
--- NOTE | 2019-08-19 01:37 | RADIOLOGY REPORT (SQ) ---
EXAM DESCRIPTION: US TRANSVAGINAL COMPLETED DATE/TME: 08/18/2019 23:01 CLINICAL HISTORY: 28 years, Female, preg abd cramps vag bleed COMPARISON: None. TECHNIQUE: Emergent OB ultrasound LIMITATIONS: None. FINDINGS: The uterus measures 9.3 x 6.4 x 6.2 cm. The myometrium is homogenous. There is an intrauterine gestational sac with yolk sac. There is no visualized pole or heart tones at this time. There is a 1.2 x 1.3 cm hypoechoic area near the gestational sac which could reflect area of small subchorionic hemorrhage. The right ovary measures 6.5 x 3.1 x 3.0 cm. The left ovary measures 3.6 x 1.5 x 3.0 cm. Normal flow to each ovary. There is a 4.0 x 2.9 cm cyst of the right ovary having a simple appearance. No solid adnexal mass. No free fluid. Current ultrasound age is 6 weeks 2 days IMPRESSION: Intrauterine gestational sac with yolk sac. Ultrasound age is 6 weeks 2 days. No pole or detectable heart tones. Close obstetric follow-up recommended. Correlate with beta hCG levels. Possible small subchorionic hemorrhage. Probable corpus luteal cyst of the right ovary copyright 2010 [employer]- All Rights Reserved
--- NOTE | 2019-08-19 02:49 | ER Document Report ---
Entered by CHITO ZAZUETA SCRIBE 08/19/19 0233 Acting as scribe for:YARIEL NAPIER IV, MD ED GI/ - General Chief Complaint: Vaginal Bleeding Stated Complaint: VAGINAL BLEEDING Time Seen by Provider: 08/18/19 22:59 Primary Care Provider: KHANH GARCIA MD [ACTIVE STAFF] - 08/28/19 TRENA MCDOWELL PA-C [Primary Care Provider] - Follow up as needed Mode of Arrival: Ambulatory Information source: Patient Notes: This 28 year old female patient and approximately x5 weeks presents to the ED today with complaints of vaginal spotting that began x1 day ago. Patient denies any abdominal cramping, nausea, vomiting, diarrhea, fever, or having sexual intercourse within the last x24 hours. Patient states that her last menstrual cycle was 07/08/19. Patient states that [facility] when she is x7 weeks . TRAVEL OUTSIDE OF THE [place] IN LAST 30 DAYS: No - Related Data Allergies/Adverse Reactions: No Known Allergies Allergy (Verified 05/17/19 14:47) Past Medical History - General Information source: Patient - Social History Smoking Status: Never Smoker Cigarette use (# per day): No Chew tobacco use (# tins/day): No Smoking Education Provided: No Frequency of alcohol use: None Drug Abuse: None Family History: Reviewed & Not Pertinent, CAD, Hypertension, Other - Patient states her dad does not have any medical problems. Her mom at age 42. She states she had lung cancer, scleroderma, interstitial lung disease and for the last year of her life is on hemodialysis.Patient has 2 siblings they are healthy Patient has suicidal ideation: No Patient has homicidal ideation: No Neurological Medical History: Reports: Hx Migraine GI Medical History: Reports: Hx Gastroesophageal Reflux Disease Past Surgical History: Reports: Hx Cholecystectomy - Immunizations Hx Diphtheria, Pertussis, Tetanus Vaccination: Yes Review of Systems - Review of Systems Constitutional: denies: Fever EENT: No symptoms reported Cardiovascular: No symptoms reported Respiratory: No symptoms reported Gastrointestinal: See HPI. denies: Abdominal pain, Diarrhea, Nausea, Vomiting Genitourinary: No symptoms reported Female Genitourinary: See HPI, - 5 weeks, Vaginal bleeding Musculoskeletal: No symptoms reported Skin: No symptoms reported Hematologic/Lymphatic: No symptoms reported Neurological/Psychological: No symptoms reported -: Yes All other systems reviewed and negative Physical Exam - Vital signs Vitals: Temp Pulse Resp BP Pulse Ox 98.0 F 105 H 20 119/64 99 08/18/19 22:21 08/18/19 22:21 08/18/19 22:21 08/18/19 22:21 08/18/19 22:21 - General General appearance: Appears well, Alert In distress: None - HEENT Head: Normocephalic, Atraumatic Eyes: Normal Pupils: PERRL - Respiratory Respiratory status: No respiratory distress Chest status: Nontender Breath sounds: Normal Chest palpation: Normal - Cardiovascular Rhythm: Regular Heart sounds: Normal auscultation Murmur: No - Abdominal Inspection: Normal Distension: No distension Bowel sounds: Normal Tenderness: Nontender Organomegaly: No organomegaly - Back Back: Normal, Nontender - Extremities General upper extremity: Normal inspection General lower extremity: Normal inspection - Neurological Neuro grossly intact: Yes - Psychological Associated symptoms: Normal affect, Normal mood - Skin Skin Temperature: Warm Skin Moisture: Dry Skin Color: Normal Course - Re-evaluation Re-evalutation: 08/19/19 02:38 Results of ED MSE discussed with patient. Patient states she has a appointment with [facility] for when she is 7 weeks. This MD informed the patient that she should be seen in follow-up a week from Wednesday. Emergency signs and symptoms, reasons to return to the emergency department discussed with patient. When asked if everything about the patient's ED visit today was explained to her in a manner which she could understand she answered in the affirmative. - Vital Signs Vital signs: Temp Pulse Resp BP Pulse Ox 98.8 F 87 16 104/63 100 08/19/19 02:58 08/19/19 02:58 08/19/19 02:58 08/19/19 02:58 08/19/19 02:58 - Laboratory Result Diagrams: 08/18/19 23:15 08/18/19 23:15 Laboratory results interpreted by me: 08/18/19 08/18/19 08/18/19 23:15 23:15 23:15 Hct 35.7 L Potassium 3.5 L Beta HCG, Quant 46485.00 H Urine Urobilinogen 2.0 H Ur Leukocyte Esterase SMALL H - Diagnostic Test Radiology reviewed: Reports reviewed Discharge - Discharge Clinical Impression: Vaginal bleeding affecting early Condition: Good Disposition: HOME, SELF-CARE Additional Instructions: Return to the Emergency Department without delay if any worse. HOME CARE INSTRUCTIONS & INFORMATION: Thank you for choosing us for your medical needs. We hope you're satisfied with the care you received. After you leave, you must properly care for your problem and, at the same time, observe its progress. Any condition can change. Some illnesses can change rapidly over hours or days. If your condition worsens, return to the Emergency Department or see your physician promptly. ABOUT YOUR X-RAYS AND EKG'S: If you had an EKG or X-rays taken, they have been read by the Emergency Physician. The X-rays and EKG's will also be read by a Radiologist or Race Car Mechanic within 24 hours. If discrepancies are noted, you will be notified by telephone. Please be certain the ED has a correct telephone number & address where you can be reached. Also, realize that some fractures or abnormalities do not show up on initial X-rays. If your symptoms continue, see your physician. ABOUT YOUR LABORATORY TEST: If you had laboratory tests, the results have been reviewed by the Emergency Physician. Some test results (for example cultures) may not be available for several days. You will be contacted if any test result shows you need additional treatment. Please be certain the ED has a correct telephone number and address where you can be reached. ABOUT YOUR MEDICATIONS: You will receive instructions on how to take your medicine on the prescription label you receive. Additional information may be provided by the Pharmacy. If you have questions afterwards, call the ED for clarification or further instructions. Some prescribed medications may cause drowsiness. Do not perform tasks such as driving a car or operating machinery without consulting your Pharmacist. If you feel you need a refill of pain medication, your condition will need re-evaluation. Please do not call for a refill of any medication. ABOUT YOUR SIGNATURE: Signature of this document acknowledges to followin. Understanding that you received emergency treatment and that you may be released before al medical problems are known or treated. Please be certain the ED has a correct phone number & address where you can be reached. 2. Acknowledgement that you will arrange for follow-up care as recommended. 3. Authorization for the Emergency Physician to provide information to your follow-up Physician in order to maximize your care. AT ANY TIME, IF YOUR SYMPTOMS CHANGE SIGNIFICANTLY OR WORSEN OR YOU DEVELOP NEW SYMPTOMS, RETURN TO THE EMERGENCY DEPARTMENT IMMEDIATELY FOR RE-EVALUATION. OUR GOAL IS TO PROVIDE EXCELLENT MEDICAL CARE! WE HOPE THAT WE HAVE MET YOUR EXPECTATIONS DURING YOUR EMERGENCY DEPARTMENT VISIT AND THAT YOU FEEL YOU HAVE RECEIVED EXCELLENT CARE! You are . care is best started as early in as possible. If you're unsure about continuing this , you should discuss this with your physician or with [facility] plater at [facility]. You should take only medications approved by your physician. Acetaminophen can safely be taken for minor pains. As a rule, medication for chronic conditions such as asthma or seizures can safely be continued. You should discuss with the physician every medicine you take. Any regular exercise program can be continued. Talk to your physician, however, before engaging in competitive or demanding sports. Alcohol, smoking, and "street drugs" are dangerous to your baby. Cocaine is especially dangerous. Don't use any illicit drugs! Referrals: TRENA MCDOWELL PA-C [Primary Care Provider] - Follow up as needed KHANH GARCIA MD [ACTIVE STAFF] - 08/28/19 I personally performed the services described in the documentation, reviewed and edited the documentation which was dictated to the scribe in my presence, and it accurately records my words and actions.
[2019-08-19 03:00] VITALS: BP 104/63
== END 2019-08-19 03:02 | disposition home or self-care (01) ==
LOC: ER 22:11
DX: O46.91 Antepartum hemorrhage, unspecified, first trimester (principal); Z3A.01 Less than 8 weeks gestation of pregnancy
CPT/HCPCS: 36415; 76817; 80053; 81001; 84702; 85025; 86900; 86901; 99284